=== PATIENT | male | born 1950 | race Caucasian/White ===

== ENCOUNTER 2020-08-28 13:20 | Outpatient (REF) | payer MEDICARE, MEDICAID, SELFPAY ==
[2020-08-28 17:30] LABS: Thyroid Stimulating Hormone 0.93 mIU/mL (0.32-4.0)
== END 2020-08-28 13:21 | disposition home or self-care (01) ==
LOC: HO.HMGCLDS 13:20
PROVIDERS: PCP Internal Medicine; Visit Provider Internal Medicine
DX: G62.9 Polyneuropathy, unspecified (principal)
CPT/HCPCS: 84443

== ENCOUNTER → 2020-10-01 08:20 | Outpatient (BNVA) | payer MEDICARE, MEDICAID, SELFPAY | PROVIDERS: PCP Internal Medicine; Visit Provider Anesthesiology | DX: G89.4 Chronic pain syndrome (principal); M47.816 Spondylosis without myelopathy or radiculopathy, lumbar region; M47.814 Spondylosis without myelopathy or radiculopathy, thoracic region | CPT/HCPCS: 99212 ==

== ENCOUNTER 2020-11-11 08:03 | Outpatient (REF) | payer MEDICARE, MEDICAID, SELFPAY ==
[2020-11-11 11:53] LABS: Alanine Aminotransferase 33 U/L (0-40); Albumin Level 4.6 g/dL (3.5-5.0); Alkaline Phosphatase 46 U/L (39-117); Anion Gap 13 (12-20); Aspartate Amino Transferase 24 U/L (5-37); Bilirubin Total 0.9 mg/dL (0.0-1.0); Blood Urea Nitrogen 23 mg/dL (9-16); Calcium 9.2 mg/dL (8.4-10.2); Carbon Dioxide 26 mmol/L (22-29); Chloride 101 mmol/L (96-108); Cholesterol 231 mg/dL; Estimated Glomerular Filt Rate 58; Glucose Fasting 105 mg/dL (60-99); HDL Cholesterol 42 mg/dL; LDL Cholesterol Calculated 126 mg/dl; Potassium 4.5 mmol/l (3.3-5.1); Sodium 135 mmol/L (135-145); Triglycerides 317 mg/dL
== END 2020-11-11 08:04 | disposition home or self-care (01) ==
LOC: HO.HMGCLDS 08:03
PROVIDERS: PCP Internal Medicine; Visit Provider Internal Medicine
DX: I10 Essential (primary) hypertension (principal); E78.5 Hyperlipidemia, unspecified
CPT/HCPCS: 80053; 80061

== ENCOUNTER → 2020-12-31 14:20 | Outpatient (BNVA) | payer MEDICARE, MEDICAID, SELFPAY | PROVIDERS: PCP Internal Medicine; Visit Provider Anesthesiology | DX: M47.816 Spondylosis without myelopathy or radiculopathy, lumbar region (principal); M47.814 Spondylosis without myelopathy or radiculopathy, thoracic region; G89.4 Chronic pain syndrome; M79.7 Fibromyalgia | CPT/HCPCS: 99212 ==

== ENCOUNTER → 2021-01-13 14:09 | Outpatient (BNVA) | payer MEDICARE, MEDICAID, SELFPAY | PROVIDERS: PCP Internal Medicine; Visit Provider Anesthesiology | DX: M47.816 Spondylosis without myelopathy or radiculopathy, lumbar region (principal); M47.814 Spondylosis without myelopathy or radiculopathy, thoracic region; M79.7 Fibromyalgia; G89.4 Chronic pain syndrome | CPT/HCPCS: Q3014 ==

== ENCOUNTER → 2021-01-29 15:43 | Outpatient (BNVA) | payer MEDICARE, MEDICAID, SELFPAY | PROVIDERS: PCP Internal Medicine; Visit Provider Anesthesiology | DX: M47.816 Spondylosis without myelopathy or radiculopathy, lumbar region (principal); M47.814 Spondylosis without myelopathy or radiculopathy, thoracic region; G89.4 Chronic pain syndrome; M79.7 Fibromyalgia; Z79.899 Other long term (current) drug therapy | CPT/HCPCS: Q3014 ==

== ENCOUNTER → 2021-02-05 14:43 | Outpatient (BNVA) | payer MEDICARE, MEDICAID, SELFPAY | PROVIDERS: PCP Internal Medicine; Visit Provider Anesthesiology | DX: M47.816 Spondylosis without myelopathy or radiculopathy, lumbar region (principal); M47.814 Spondylosis without myelopathy or radiculopathy, thoracic region; G89.4 Chronic pain syndrome; M79.7 Fibromyalgia; Z79.899 Other long term (current) drug therapy | CPT/HCPCS: 99212 ==

== ENCOUNTER 2021-03-25 07:12 | Outpatient (REF) | payer MEDICARE, MEDICAID, SELFPAY ==
[2021-03-25 11:42] LABS: Alanine Aminotransferase 28 U/L (0-40); Albumin Level 4.6 g/dL (3.5-5.0); Alkaline Phosphatase 49 U/L (39-117); Anion Gap 13 (12-20); Aspartate Amino Transferase 24 U/L (5-37); Bilirubin Total 1.1 mg/dL (0.0-1.0); Blood Urea Nitrogen 17 mg/dL (9-16); C Reactive Protein 0.07 mg/dL (< or = 0.50); Calcium 9.1 mg/dL (8.4-10.2); Carbon Dioxide 24 mmol/L (22-29); Chloride 105 mmol/L (96-108); Cholesterol 165 mg/dL; Estimated Glomerular Filt Rate > 60; Glucose Fasting 107 mg/dL (60-99); HDL Cholesterol 37 mg/dL; LDL Cholesterol Calculated 79 mg/dl; Potassium 4.3 mmol/L (3.3-5.1); Sodium 138 mmol/L (135-145); Total Protein 7.8 g/dL (6.5-8.0); Triglycerides 245 mg/dL
== END 2021-03-25 07:13 | disposition home or self-care (01) ==
LOC: HO.HMGCLDS 07:12
PROVIDERS: PCP Internal Medicine; Visit Provider Internal Medicine
DX: E78.5 Hyperlipidemia, unspecified (principal); I10 Essential (primary) hypertension; M25.50 Pain in unspecified joint; M79.7 Fibromyalgia
CPT/HCPCS: 36415; 80053; 80061; 82550; 86140

== ENCOUNTER → 2021-12-21 10:30 | Outpatient (BNVA) | payer MEDICARE, MEDICAID, SELFPAY | PROVIDERS: PCP Internal Medicine; Visit Provider Nurse Practitioner Family | DX: M79.7 Fibromyalgia (principal); M25.50 Pain in unspecified joint; M47.814 Spondylosis without myelopathy or radiculopathy, thoracic region; M47.816 Spondylosis without myelopathy or radiculopathy, lumbar region; G89.4 Chronic pain syndrome; G62.9 Polyneuropathy, unspecified | CPT/HCPCS: Q3014 ==

== ENCOUNTER → 2022-05-17 10:20 | Outpatient (BNVA) | payer MEDICARE, MEDICAID, SELFPAY | PROVIDERS: PCP Internal Medicine; Visit Provider Anesthesiology | DX: M79.7 Fibromyalgia (principal); M25.50 Pain in unspecified joint; G89.4 Chronic pain syndrome; M47.814 Spondylosis without myelopathy or radiculopathy, thoracic region; M47.816 Spondylosis without myelopathy or radiculopathy, lumbar region; G62.9 Polyneuropathy, unspecified | CPT/HCPCS: Q3014 ==

== ENCOUNTER 2022-06-29 06:59 | Outpatient (REF) | payer MEDICARE, MEDICAID, SELFPAY ==
[2022-06-29 11:34] LABS: Hematocrit 40.6 % (42.0-52.0); Hemoglobin 13.7 g/dl (14.0-18.0); Mean Corpuscular HGB Conc 33.7 g/dl (31.0-36.0); Mean Corpuscular Hemoglobin 30.4 pg (27.0-33.0); Mean Corpuscular Volume 90.2 fL (80.0-98.0); Mean Platelet Volume 10.3 fL (9.4-12.4); Platelet Count 166 X10*3/uL (160-400); Red Cell Distribution Width 12.8 % (11.0-16.0); White Blood Count 5.2 X10*3/uL (4.8-10.8)
[2022-06-29 11:40] LABS: Estimated Average Glucose 120 mg/dL; Hemoglobin A1c % 5.8 %
[2022-06-29 11:50] LABS: Alanine Aminotransferase 35 U/L (0-40); Albumin Level 4.3 g/dL (3.5-5.0); Alkaline Phosphatase 47 U/L (39-117); Anion Gap 17 (12-20); Aspartate Amino Transferase 24 U/L (5-37); Bilirubin Total 0.8 mg/dL (0.0-1.0); Blood Urea Nitrogen 19 mg/dL (9-16); Calcium 8.7 mg/dL (8.4-10.2); Carbon Dioxide 22 mmol/L (22-29); Chloride 104 mmol/L (96-108); Cholesterol 186 mg/dL; Estimated Glomerular Filt Rate > 60; Glucose Fasting 101 mg/dL (60-99); HDL Cholesterol 38 mg/dL; LDL Cholesterol Calculated 97 mg/dl; Potassium 4.6 mmol/L (3.3-5.1); Sodium 138 mmol/L (135-145); Total Protein 7.5 g/dL (6.5-8.0); Triglycerides 256 mg/dL
== END 2022-06-29 07:00 | disposition home or self-care (01) ==
LOC: HO.HMGCLDS 06:59
PROVIDERS: PCP Internal Medicine; Visit Provider Internal Medicine
DX: G62.9 Polyneuropathy, unspecified (principal); I10 Essential (primary) hypertension; E78.5 Hyperlipidemia, unspecified
CPT/HCPCS: 36415; 80053; 80061; 83036; 85027

== ENCOUNTER → 2022-11-24 10:05 | Outpatient (BNVA) | payer MEDICARE, MEDICAID, SELFPAY | PROVIDERS: PCP Internal Medicine; Visit Provider Anesthesiology | DX: M79.7 Fibromyalgia (principal); M25.50 Pain in unspecified joint; M47.814 Spondylosis without myelopathy or radiculopathy, thoracic region; M47.816 Spondylosis without myelopathy or radiculopathy, lumbar region; G62.9 Polyneuropathy, unspecified; G89.4 Chronic pain syndrome | CPT/HCPCS: Q3014 ==

== ENCOUNTER 2023-06-01 07:13 | Outpatient (REF) | payer MEDICARE, MEDICAID, SELFPAY ==
[2023-06-01 11:13] LABS: MANUAL DIFF FLAG NO
[2023-06-01 11:17] LABS: Appearance Urine Clear; Color Urine Yellow; Glucose Urine UA Negative (Negative); Leukocyte Esterase Urine Negative (Negative); Nitrite Urine Negative (Negative); PH 5.5 (5.0-9.0); Urine Blood Negative (Negative); Urine Ketones Negative (Negative); Urine Protein Negative (Neg-Trace)
[2023-06-01 11:26] LABS: Bacteria Urine None Seen (None Seen); Hyaline Casts Urine 0-2 /LPF (0-2); RBC Urine 0-2 /HPF (0-2); Squamous Epithelial Cell Urine 0-2 /HPF (0-2); WBC Urine 0-5 /HPF (0-5)
[2023-06-01 11:30] LABS: Basophils Percent Auto 0.7 % (0-2); Eosinophils Absolute Auto 0.1 X10*3/uL (0.0-0.4); Eosinophils Percent Auto 1.3 % (0-4); Hematocrit 39.7 % (42.0-52.0); Hemoglobin 13.5 g/dl (14.0-18.0); Imm Gran Abs Auto 0.01 X10*3/uL (0.00-0.03); Imm Gran Pct Auto 0.2 % (0.0-0.4); Lymphocytes Absolute Auto 2.5 X10*3/uL (1.2-4.9); Lymphocytes Percent Auto 45.4 % (20-40); Mean Corpuscular Hemoglobin 30.8 pg (27.0-33.0); Mean Corpuscular Volume 90.6 fL (80.0-98.0); Mean Platelet Volume 10.5 fL (9.4-12.4); Monocytes Absolute Auto 0.5 X10*3/uL (0.1-1.2); Monocytes Percent Auto 9.8 % (2-11); Neutrophils Absolute Auto 2.3 x10*3/uL (2.0-8.3); Neutrophils Percent Auto 42.6 % (45-73); Platelet Count 147 X10*3/uL (160-400); Red Blood Count 4.38 X10*6/uL (4.60-5.80); Red Cell Distribution Width 12.9 % (11.0-16.0); White Blood Count 5.4 X10*3/uL (4.8-10.8)
[2023-06-01 12:42] LABS: Alanine Aminotransferase 31 U/L (0-40); Albumin Level 4.3 g/dL (3.5-5.0); Alkaline Phosphatase 45 U/L (39-117); Anion Gap 15 (12-20); Aspartate Amino Transferase 22 U/L (5-37); Bilirubin Total 1.1 mg/dL (0.0-1.0); Blood Urea Nitrogen 22 mg/dL (9-16); Calcium 9.8 mg/dL (8.4-10.2); Carbon Dioxide 23 mmol/L (22-29); Chloride 104 mmol/L (96-108); Cholesterol 177 mg/dL; Estimated Glomerular Filt Rate > 60; Glucose Fasting 98 mg/dL (60-99); HDL Cholesterol 40 mg/dL; LDL Cholesterol Calculated 84 mg/dl; Potassium 4.2 mmol/L (3.3-5.1); Sodium 138 mmol/L (135-145); TSH reflex Free T4 2.05 uIU/mL (0.32-4.0); Total Protein 7.6 g/dL (6.5-8.0); Triglycerides 265 mg/dL
== END 2023-06-01 07:14 | disposition home or self-care (01) ==
LOC: HO.HMGCLDS 07:13
PROVIDERS: Absent Provider Nurse Practitioner Psychiatric/Mental Health; PCP Internal Medicine; Visit Provider Internal Medicine
DX: Z00.00 Encounter for general adult medical examination without abnormal findings (principal); E78.5 Hyperlipidemia, unspecified; I10 Essential (primary) hypertension; M25.50 Pain in unspecified joint; Z79.899 Other long term (current) drug therapy
CPT/HCPCS: 36415; 80053; 80061; 81001; 84443; 85025

== ENCOUNTER 2023-07-12 09:07 | Outpatient (AMB) | payer MEDICARE, MEDICAID, SELFPAY ==
[2023-07-12 09:15] VITALS: BP 122/74; PULSE 77; O2SAT 97; BMI 28.4
--- NOTE | 2023-07-12 09:15 | A.OFFPC_ITS ---
Vital Signs 07/12/23 09:15 Height 5 ft 9 in Weight 192 lb BMI 28.4 BP 122/74 Blood Pressure Location Lt brachial Position Sitting Pulse 77 Pulse Source Pulse Oximeter Pulse Oximetry (%) 97 Oxygen Delivery Method Room Air Intake Visit Reasons: PE Intake Note: Pt is here today for PE. Allergies atorvastatin [Lipitor] Allergy (Unknown, Verified 07/12/23 09:18) abd pain bupropion [From Wellbutrin] Allergy (Unknown, Verified 07/12/23 09:18) Nausea, Upset stomach buspirone [From BuSpar] Allergy (Unknown, Verified 07/12/23 09:18) anxiety, stomach duloxetine [Cymbalta] Allergy (Unknown, Verified 07/12/23 09:18) body burning gabapentin Allergy (Unknown, Verified 07/12/23 09:18) stomach upset paroxetine [Paxil] Allergy (Unknown, Verified 07/12/23 09:18) nausea and vomiting sertraline [Zoloft] Allergy (Unknown, Verified 07/12/23 09:18) anxiety venlafaxine [From Effexor] Allergy (Unknown, Verified 07/12/23 09:18) stomach upset Medication List - Last Reconciled 07/12/23 by Dilma Garcia MD aripiprazole mg PO clonazepam mg PO DAILY dutasteride 0.5 mg PO escitalopram oxalate mg PO ibuprofen mg PO lisinopril 15 mg PO DAILY mirtazapine 45 mg PO DAILY Neurontin (gabapentin) 300 mg PO TID 30 days NS rosuvastatin 10 mg PO DAILY Tobacco use date assessed: 07/12/23 Fall risk assessment: No Falls in past year Last assessed Fall Risk: 07/12/23 Dental Screening Dental Screen Date: 07/12/23 Did you have a dental visit in the last 12 months?: Yes Did you have a dental problem in the last 6 months where you did not have access to dental care?: No Was dental information given to patient?: Patient has dentist HPI PE HPI Details Pt presents for PE. PFSH Medical History (Updated 07/12/23 @ 09:59 by Dilma Garcia MD) Abdominal pain Annual physical exam Arthralgia Chronic pain syndrome Depression Fibromyalgia GERD (gastroesophageal reflux disease) HTN (hypertension) Hyperlipidemia Muscle spasm Neuropathy Spondylosis of lumbar spine Spondylosis of thoracic spine Surgical History (Updated 07/12/23 @ 09:47 by Dilma Garcia MD) No pertinent past surgical history Family History Father Unknown family medical history Mother HTN (hypertension) Brother Chronic leukemia Social History Housing: House Patient Tobacco Use Status: Never used Tobacco e-Cigarette/Vaping Use: Never Used Current occupational status: retired Cognitive needs: No Hearing needs: No Vision needs: No Questionnaire PHQ-9 Over the last 2 weeks, how often have you been bothered by any of the following problems? 1. Little interest or pleasure in doing things: not at all 2. Feeling down, depressed, or hopeless: not at all 3. Trouble falling or staying asleep, or sleeping too much: not at all 4. Feeling tired or having little energy: not at all 5. Poor appetite or overeating: not at all 6. Feeling bad about yourself - or that you are a failure or have let yourself or your family down: not at all 7. Trouble concentrating on things, such as reading the newspaper or watching television: not at all 8. Moving or speaking so slowly that other people could have noticed. Or the opposite - being so fidgety or restless that you have been moving around a lot more than usual: not at all 9. Thoughts that you would be better off or of hurting yourself in some way: not at all Total score: 0 Depression Screening Interpretation: Negative Source: Developed by Drs. Zeke Antony, Tala Lindsey, Bradly Rainey and colleagues, with an educational bunny from [employer]. Thrive Questionnaire Date Thrive assessed: 07/12/23 I am a: Patient What is your living situation today?: I have a steady place to live Within the past 12 months, did the food you bought not last and you didn't have the money to get more?: Never true Within the past 12 months, did you worry whether your food would run out before you got money to buy more?: Never true Do you have trouble paying for medicines?: No Do you have trouble getting transportation to medical appointments?: No Do you have trouble paying your heating and electricity bill?: No Do you have trouble taking care of your child, family member or friend?: No Do you have trouble with day-to-day activities such as bathing, preparing meals, shopping, managing finances, etc.?: No Are you currently unemployed and looking for a job?: No Are you interested in more education?: No Please select the resources that you would like help with: None Currently or been in a relationship where the following occur: no concerns reported AUDIT C Alcohol Use Questionnaire (AUDIT-C) 1. How often do you have a drink containing alcohol?: Never 3. How often do you have six or more drinks on one occasion?: Never Total Score: 0 GILSON-7 AMB Questionnaire GILSON-7 Date GILSON - 7 assessed: 07/12/23 Feeling nervous, anxious, or on edge: 0 = Not at all Not being able to stop or control worryin = Not at all Worrying too much about different things: 0 = Not at all Trouble relaxin = Not at all Being so restless that it is hard to sit still: 0 = Not at all Becoming easily annoyed or irritable: 0 = Not at all Feeling afraid as if something awful might happen: 0 = Not at all Total GILSON-7 score (0-4 normal; 5-9 mild; 10-14 moderate; 15-21 severe): 0 Source: Developed by Drs. Zeke Antony, Tala Lindsey, Bradly Rainey and colleagues, with an educational bunny from [employer]. Review of Systems Const All systems reviewed & are unremarkable except as noted in HPI and below Reports no additional complaints Eyes Reports no additional complaints ENT Reports no additional complaints Card Reports no additional complaints Resp Reports no additional complaints GI Reports no additional complaints Reports no additional complaints Physical exam (Primary Care) Vital Signs: Last Vital Signs Pulse 77 07/12/23 09:15 BP 122/74 07/12/23 09:15 Pulse Ox 97 07/12/23 09:15 Oxygen Delivery Method Room Air 07/12/23 09:15 BMI result Body Mass Index 28.4 Tobacco/Smoking Status: Tobacco use Status Tobacco use date assessed 07/12/23 07/12/23 09:22 Patient Tobacco Use Status Never used Tobacco 07/12/23 09:22 e-Cigarette/Vaping Use Never Used 07/12/23 09:16 PHQ-9: PHQ-9 Score PHQ-9: Total score 0 07/12/23 09:22 Depression Screening Interpretation: Negative Thrive Assessment: Date of Thrive Assessment Date Thrive assessed 07/12/23 07/12/23 09:22 Currently or been in a relationship where the following occur: no concerns reported Const General: no acute distress HENMT Head: Yes normal to inspection Ears: hearing grossly normal bilaterally Face and sinus: Yes normal facial exam Mouth: Normal oral and palatal mucosa present Throat: Yes posterior oropharynx normal Eyes General: appearance normal, both eyes and all related structures Neck Neck: Yes no lymphadenopathy and Yes supple Resp Effort & Inspection: normal respiratory effort Auscultation: clear to auscultation bilaterally Cardio Rhythm: regular rhythm Heart sounds: S1 normal heart sound present and S2 normal heart sound present GI Inspection: Yes normal to inspection Palpation (GI): Soft to palpation Percussion: Yes normal to percussion Auscultation: normal bowel sounds Assessment and Plan Assessment & Plan (1) Hx of colonoscopy: Comment: Dr. Kannan Vaughn Code(s): Z98.890 - Other specified postprocedural states (2) Annual physical exam: Code(s): Z00.00 - Encounter for general adult medical examination without abnormal findings Plan: Well-balanced and regular physical activity discussed with the patient (3) HTN (hypertension): Code(s): I10 - Essential (primary) hypertension Plan: Continue lisinopril (4) Hyperlipidemia: Code(s): E78.5 - Hyperlipidemia, unspecified Plan: Continue statin and add fish oil supplement for elevated triglycerides, (5) Depression: Comment: Established with psychiatrist and therapist Code(s): F32.9 - Major depressive disorder, single episode, unspecified Plan: Continue current medications and follow-up with Psychiatry Orders: Orders Comprehensive Colbert. Panel Fast 365 Days E78.5 - Hyperlipidemia, unspecified, G89.4 - Chronic pain syndrome, I10 - Essential (primary) hypertension, Z00.00 - Encounter for general adult medical examination without abnormal findings Complete Blood Count Auto Diff 365 Days E78.5 - Hyperlipidemia, unspecified, G89.4 - Chronic pain syndrome, I10 - Essential (primary) hypertension, Z00.00 - Encounter for general adult medical examination without abnormal findings Lipid Panel 365 Days E78.5 - Hyperlipidemia, unspecified, G89.4 - Chronic pain syndrome, I10 - Essential (primary) hypertension, Z00.00 - Encounter for general adult medical examination without abnormal findings Medications: Changed From lisinopril 10 mg PO BID 180 tabs 3RF To lisinopril 15 mg PO DAILY Coding Level of Care Code Est Pt Prev Care >65y(52475) Diagnoses Hx of colonoscopy Z98.890 Annual physical exam Z00.00 HTN (hypertension) I10 Hyperlipidemia E78.5 Depression F32.9
== END 2023-07-12 10:00 | disposition home or self-care (01) ==
PROVIDERS: PCP Internal Medicine; Visit Provider Internal Medicine
DX: Z00.00 Encounter for general adult medical examination without abnormal findings (principal); Z98.890 Other specified postprocedural states; I10 Essential (primary) hypertension; F32.9 Major depressive disorder, single episode, unspecified; E78.5 Hyperlipidemia, unspecified
CPT/HCPCS: 99397

== ENCOUNTER 2023-08-01 09:21 | Outpatient (AMB) | payer MEDICARE, MEDICAID, SELFPAY ==
--- NOTE | 2023-08-01 09:24 | A.OFFVIS_ITS ---
Intake Vital Signs 08/01/23 09:30 Height 5 ft 9 in Weight 194 lb 2 oz BMI 28.7 BP 140/88 H Blood Pressure Location Rt brachial Position Sitting Pulse 78 Pulse Source Pulse Oximeter Pulse Oximetry (%) 97 Oxygen Delivery Method Room Air Intake Visit Reasons: Follow Up/Back Pain Intake Note: Pt states pain is better in lower back-rating 2/10 with gabapentin Allergies atorvastatin [Lipitor] Allergy (Unknown, Verified 08/01/23 09:31) abd pain bupropion [From Wellbutrin] Allergy (Unknown, Verified 08/01/23 09:31) Nausea, Upset stomach buspirone [From BuSpar] Allergy (Unknown, Verified 08/01/23 09:31) anxiety, stomach duloxetine [Cymbalta] Allergy (Unknown, Verified 08/01/23 09:31) body burning gabapentin Allergy (Unknown, Verified 08/01/23 09:31) stomach upset paroxetine [Paxil] Allergy (Unknown, Verified 08/01/23 09:31) nausea and vomiting sertraline [Zoloft] Allergy (Unknown, Verified 08/01/23 09:31) anxiety venlafaxine [From Effexor] Allergy (Unknown, Verified 08/01/23 09:31) stomach upset Medication List - Last Reconciled 08/01/23 by Antoinette Trejo RN aripiprazole mg PO clonazepam mg PO DAILY dutasteride 0.5 mg PO escitalopram oxalate mg PO ibuprofen mg PO lisinopril 15 mg PO DAILY mirtazapine 45 mg PO DAILY Neurontin (gabapentin) 300 mg PO TID 30 days NS rosuvastatin 10 mg PO DAILY HPI HPI Comments History of Present Illness Details Gerald Taylor is very pleasant 69 years old [place] gentleman who is on the phone today to discuss the neurontin brand name medication as oppose to gabapentin . He reports that the brand name does not irritate his stomach. He requests me to perform pre authorization for his gabapentin/Neurontin. He reports that Neurontin worse for him better than gabapentin and insistent prescribing Neurontin instead of gabapentin. He denied depression increase of gabapentin however he is on 2 antidepressant medications escitalopram and aripiprazole. Warning was given to the patient about risk of dose increase or stop of the medication as it can induce suicide. Alternative medications are not available since gabapentin is working very well for him reducing his pain to 2/10 today. I will renew his medication and prescribe it for with 11 refills. Prior : ? History of evaluation by Dr. Sykes with [facility]..? He received extensive ev aluation in that organization.? No surgeries necessary.? As of thoracic spine pain his insurance would not cover thoracic medial branch blocks. ?Another pain generator is located in his lumbar spine. He reported that pain started in 1999. he reports the pain in the center of the lowest lumbar spine with radiation into the right lower extremity as well as numbness and numbing pain at the lower portion of the leg and the foot. He reports that this pain started in 2001 secondary to lifting heavy weights at his job. 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 He tried multiple interventions to help this pain including physical therapy chiropractic manipulation, acupuncture TENS unit, he tried full body extension exercises, he reports the only thing helps minimally in the past was body extension but other interventions were not effective. He received epidural steroid injections with [id number] they were designed to treat L4- 5 radiculopathy. He reports that injection helped minimally for few days and then the pain would come back. He had an MRI done for his lumbar spine on MRI he has T12-L1 normal as well as L1-L2 and L2-L3. L3-L4 minimal disc bulge without spinal canal stenosis mild facet arthropathy mild left and no significant right foraminal stenosis L4-5 there is mild diffuse disc bulge with small left paracentral annual tear flattening the ventral thecal sac and significantly narrowing the bilateral subarticular zones with the bilateral L5 traversing nerve roots contacting the bulging discs within the subarticular zone there is facet joint arthropathy there is posterior endplate spurs and facet joint arthropathy resulting in moderate left and right foraminal stenosis stable. L5-S1 facet arthropathy and ligamentum flavum thickening no disc bulging no spinal canal or foraminal stenos [facility] Medical History Abdominal pain Annual physical exam Arthralgia Chronic pain syndrome Depression Fibromyalgia GERD (gastroesophageal reflux disease) HTN (hypertension) Hyperlipidemia Muscle spasm Neuropathy Spondylosis of lumbar spine Spondylosis of thoracic spine Surgical History No pertinent past surgical history Family History Father Unknown family medical history Mother HTN (hypertension) Brother Chronic leukemia Social History Housing: House Patient Tobacco Use Status: Never used Tobacco e-Cigarette/Vaping Use: Never Used Current occupational status: retired Cognitive needs: No Hearing needs: No Vision needs: No Review of Systems Const All systems reviewed & are unremarkable except as noted in HPI and below ENT Reports Normal hearing present Neuro Reports Normal hearing present, Denies confusion and Denies Sensory deficit (Neuro) Psych Denies confusion Physical Exam Const General: No confusion Orientation/consciousness: No confusion Eyes Pupils: Equal, round and reactive pupils present EOM: EOMs intact bilaterally Resp Effort & Inspection: normal respiratory effort, able to speak in complete sentences, normal respiratory pattern, no audible wheezes and no cough Cardio Jugular venous distension: no JVD GI Inspection: Yes normal to inspection Back/Spine/Pelvis Other: Palpation of the thoracic spine at the presume oval T7 area reveals severe pain on palpation in paraspinal and spinal regions. Palpation of lumbar spine in presume mobile L5 area also tender on palpation. More on spinal regions than the known paraspinal regions. Straight leg rising is a positive for pain increase on the right as well as pain increase on the left straight leg rising on the left causes pain on the right. The pain is of shooting nature and radiates all the way down to the ball of his foot. He also feels numbness during the pain episode. This presents classical radiculopathy.. Neuro General: No confusion Cranial nerves: Yes Equal, round and reactive pupils present and Yes Normal hearing present Sensory Exam: No Sensory deficit (Neuro) Psych Appearance: grossly normal Mental Status: mental status grossly normal Speech and movement: Normal speech and movement present Affect: normal affect Attitude: cooperative Thought process: Normal thought process present Thought content: Normal thought content present Insight: Good insight present (Psych) Judgement: Good judgement present (Psych) Assessment & Plan Assessment & Plan (1) Fibromyalgia: Code(s): M79.7 - Fibromyalgia (2) Arthralgia: Code(s): M25.50 - Pain in unspecified joint (3) Chronic pain syndrome: Code(s): G89.4 - Chronic pain syndrome (4) Spondylosis of thoracic spine: Code(s): M47.814 - Spondylosis without myelopathy or radiculopathy, thoracic region (5) Spondylosis of lumbar spine: Code(s): M47.816 - Spondylosis without myelopathy or radiculopathy, lumbar region (6) Neuropathy: Code(s): G62.9 - Polyneuropathy, unspecified Plan Patient has been well tolerating neurontin at 300 mg TID for his lower back pain, neuropathy and fibrolmyalgia management. Risk of continuous dose of gabapentin/Neurontin risk of does increase of Neurontin as well as therapy emanation of Neurontin were explained to the patient. Suicide ideations were explained to the patient. He is on 2 antidepressant medications. He reports no increase of depression. He reports no side effects with brand name Neurontin as opposed to gabapentin. I will prescribe him as before Neurontin medication. Medications: Refilled Neurontin (gabapentin) 300 mg PO TID 90 caps 11RF 30 days NS G62.9 - Polyneuropathy, unspecified, M47.814 - Spondylosis without myelopathy or radiculopathy, thoracic region, M47.816 - Spondylosis without myelopathy or radiculopathy, lumbar region, M79.7 - Fibromyalgia Coding Level of Care Code Est Pt Level 4 (47590) Diagnoses Fibromyalgia M79.7 Arthralgia M25.50 Chronic pain syndrome G89.4 Spondylosis of thoracic spine M47.814 Spondylosis of lumbar spine M47.816 Neuropathy G62.9
[2023-08-01 09:30] VITALS: BP 140/88; PULSE 78; O2SAT 97; BMI 28.7
== END 2023-08-01 10:05 | disposition home or self-care (01) ==
PROVIDERS: PCP Internal Medicine; Visit Provider Anesthesiology
DX: M79.7 Fibromyalgia (principal); M25.50 Pain in unspecified joint; G89.4 Chronic pain syndrome; M47.814 Spondylosis without myelopathy or radiculopathy, thoracic region; M47.816 Spondylosis without myelopathy or radiculopathy, lumbar region; G62.9 Polyneuropathy, unspecified
CPT/HCPCS: 99214

== ENCOUNTER → 2023-08-01 09:21 | Outpatient (BNVA) | payer MEDICARE, MEDICAID, SELFPAY | PROVIDERS: PCP Internal Medicine; Visit Provider Anesthesiology | DX: G89.4 Chronic pain syndrome (principal); M79.7 Fibromyalgia; M25.50 Pain in unspecified joint; M47.814 Spondylosis without myelopathy or radiculopathy, thoracic region; M47.816 Spondylosis without myelopathy or radiculopathy, lumbar region; G62.9 Polyneuropathy, unspecified | CPT/HCPCS: 99212 ==

== ENCOUNTER 2024-06-04 11:17 | Outpatient (REF) | payer MEDICARE, MEDICAID, SELFPAY ==
[2024-06-04 12:27] VITALS: BMI 28.3
[2024-06-04 12:28] VITALS: BP 143/92; PULSE 76; RESP 16; TEMP 36.2; O2SAT 97
== END 2024-06-04 11:18 | disposition home or self-care (01) ==
LOC: HO.MS 11:17
PROVIDERS: PCP Internal Medicine; Visit Provider Ophthalmology
DX: L57.0 Actinic keratosis (principal)
CPT/HCPCS: 88304; 88305

== ENCOUNTER 2024-06-18 09:16 | Outpatient (AMB) | payer MEDICARE, MEDICAID, SELFPAY ==
[2024-06-18 09:17] VITALS: BP 128/78; BMI 29.2
--- NOTE | 2024-06-18 09:17 | A.OFFVIS_ITS ---
Vital Signs 06/18/24 09:17 Height 5 ft 8 in Weight 192 lb BMI 29.2 BP 128/78 Blood Pressure Location Rt brachial Position Sitting Intake Visit Reasons: Back pain Allergies atorvastatin [Lipitor] Allergy (Unknown, Verified 08/01/23 09:31) abd pain bupropion [From Wellbutrin] Allergy (Unknown, Verified 08/01/23 09:31) Nausea, Upset stomach buspirone [From BuSpar] Allergy (Unknown, Verified 08/01/23 09:31) anxiety, stomach duloxetine [Cymbalta] Allergy (Unknown, Verified 08/01/23 09:31) body burning gabapentin Allergy (Unknown, Verified 08/01/23 09:31) stomach upset paroxetine [Paxil] Allergy (Unknown, Verified 08/01/23 09:31) nausea and vomiting sertraline [Zoloft] Allergy (Unknown, Verified 08/01/23 09:31) anxiety venlafaxine [From Effexor] Allergy (Unknown, Verified 08/01/23 09:31) stomach upset HPI Comments Details: Gerald Taylor is very pleasant 69 years old male who came today as a follow- up in my office to request a renewal of his gabapentin. He is accepting only Neurontin brand name form of this medication. He is allergic to generic gabapentin. I will prescribe him his medication as he requests. He reports pain in the lumbar spine with radiation into the right lower extremity all the way down to his heel. He has SLR is positive, most likely has degenerative disc disease and arthropathy. We decided that I will send him for MRI of the lumbar spine. The old description of the MRI is as below however it has been at least 6 years since he received that MRI and maybe the condition progress to the worse. Prior : ? History of evaluation by Dr. Sykes with [facility].? No surgeries necessary.? As of thoracic spine pain his insurance would not cover thoracic medial branch blocks. ?Another pain generator is located in his lumbar spine. He reported that pain started in 1999. he reports the pain in the center of the lowest lumbar spine with radiation into the right lower extremity as well as numbness and numbing pain at the lower portion of the leg and the foot. He reports that this pain s tarted in 2001 secondary to lifting heavy weights at his job. 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 He tried multiple interventions to help this pain including physical therapy chiropractic manipulation, acupuncture TENS unit, he tried full body extension exercises, he reports the only thing helps minimally in the past was body extension but other interventions were not effective. He received epidural steroid injections with [facility] they were designed to treat L4- 5 radiculopathy. He reports that injection helped minimally for few days and then the pain would come back. He had an MRI done for his lumbar spine on MRI he has T12-L1 normal as well as L1-L2 and L2-L3. L3-L4 minimal disc bulge without spinal canal stenosis mild facet arthropathy mild left and no significant right foraminal stenosis L4-5 there is mild diffuse disc bulge with small left paracentral annual tear flattening the ventral thecal sac and significantly narrowing the bilateral subarticular zones with the bilateral L5 traversing nerve roots contacting the bulging discs within the subarticular zone there is facet joint arthropathy there is posterior endplate spurs and facet joint arthropathy resulting in moderate left and right foraminal stenosis stable. 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 Surgical History No pertinent past surgical history Family History Father Unknown family medical history Mother HTN (hypertension) Brother Chronic leukemia Social History Housing: House Patient Tobacco Use Status: Never used Tobacco e-Cigarette/Vaping Use: Never Used Current occupational status: retired Cognitive needs: No Hearing needs: No Vision needs: No Review of Systems Const All systems reviewed & are unremarkable except as noted in HPI and below ENT Reports Normal hearing present Neuro Reports Normal hearing present, Denies confusion and Denies Sensory deficit (Neuro) Psych Denies confusion Physical Exam Vital Signs: Last Vital Signs BP 128/78 07/29/24 09:17 BMI result Body Mass Index 29.2 Const General: No confusion Orientation/consciousness: No confusion Eyes Pupils: Equal, round and reactive pupils present EOM: EOMs intact bilaterally Resp Effort & Inspection: normal respiratory effort, able to speak in complete sentences, normal respiratory pattern, no audible wheezes and no cough Cardio Jugular venous distension: no JVD GI Inspection: Yes normal to inspection Back/Spine/Pelvis Other: Palpation of the thoracic spine at the presume oval T7 area reveals severe pain on palpation in paraspinal and spinal regions. Palpation of lumbar spine in presume mobile L5 area also tender on palpation. More on spinal regions than the known paraspinal regions. Straight leg rising is a positive for pain increase on the right as well as pain increase on the left straight leg rising on the left causes pain on the right. The pain is of shooting nature and radiates all the way down to the ball of his foot. He also feels numbness during the pain episode. This presents classical radiculopathy.. Neuro General: No confusion Cranial nerves: Yes Equal, round and reactive pupils present and Yes Normal hearing present Sensory Exam: No Sensory deficit (Neuro) Psych Appearance: grossly normal Mental Status: mental status grossly normal Speech and movement: Normal speech and movement present Affect: normal affect Attitude: cooperative Thought process: Normal thought process present Thought content: Normal thought content present Insight: Good insight present (Psych) Judgement: Good judgement present (Psych) Assessment & Plan Assessment & Plan (1) Fibromyalgia: Code(s): M79.7 - Fibromyalgia Category: Medical (2) Arthralgia: Code(s): M25.50 - Pain in unspecified joint Category: Medical (3) Chronic pain syndrome: Code(s): G89.4 - Chronic pain syndrome Category: Medical (4) Spondylosis of thoracic spine: Code(s): M47.814 - Spondylosis without myelopathy or radiculopathy, thoracic region Category: Medical (5) Spondylosis of lumbar spine: Code(s): M47.816 - Spondylosis without myelopathy or radiculopathy, lumbar region Category: Medical (6) Neuropathy: Code(s): G62.9 - Polyneuropathy, unspecified Category: Medical Plan Patient has been well tolerating neurontin at 300 mg TID for his lower back pain, neuropathy and fibrolmyalgia management. He is on 2 antidepressant medications. He reports that aripiprazole helped his pain minimally. I will renew his Neurontin again. He accepts only brand name medication and he can not take gabapentin generic he is allergic to some unknown components to gabapentin. I also decided to send him for the MRI of the lumbar spine. It has been 6 years since he had last MRI. The description of the MRI is as above however the advancement of the spondylosis and disc degeneration can not be excluded. Orders: Orders MR lumbar spine wo con Today M47.816 - Spondylosis without myelopathy or radiculopathy, lumbar region Medications: Refilled Neurontin (gabapentin) 300 mg PO TID 90 caps 11RF 30 days NS G62.9 - Polyneuropathy, unspecified, M47.814 - Spondylosis without myelopathy or radiculopathy, thoracic region, M47.816 - Spondylosis without myelopathy or radiculopathy, lumbar region, M79.7 - Fibromyalgia Patient Instructions: I here by testify that I spent 34 minutes in conversation with this patient as well as planning his care and organizing this note. Coding Level of Care Code Est Pt Level 4 (94059) Diagnoses Fibromyalgia M79.7 Arthralgia M25.50 Chronic pain syndrome G89.4 Spondylosis of thoracic spine M47.814 Spondylosis of lumbar spine M47.816 Neuropathy G62.9
== END 2024-06-18 09:40 | disposition home or self-care (01) ==
PROVIDERS: PCP Internal Medicine; Visit Provider Anesthesiology
DX: M79.7 Fibromyalgia (principal); M25.50 Pain in unspecified joint; G89.4 Chronic pain syndrome; M47.814 Spondylosis without myelopathy or radiculopathy, thoracic region; M47.816 Spondylosis without myelopathy or radiculopathy, lumbar region; G62.9 Polyneuropathy, unspecified
CPT/HCPCS: 99214

== ENCOUNTER → 2024-06-18 09:16 | Outpatient (BNVA) | payer MEDICARE, MEDICAID, SELFPAY | PROVIDERS: PCP Internal Medicine; Visit Provider Anesthesiology | DX: M79.7 Fibromyalgia (principal); M25.50 Pain in unspecified joint; M47.814 Spondylosis without myelopathy or radiculopathy, thoracic region; M47.816 Spondylosis without myelopathy or radiculopathy, lumbar region; G62.9 Polyneuropathy, unspecified; G89.4 Chronic pain syndrome | CPT/HCPCS: 99212 ==

== ENCOUNTER 2024-07-13 06:50 | Outpatient (REF) | payer MEDICARE, MEDICAID, SELFPAY ==
[2024-07-13 10:07] LABS: MANUAL DIFF FLAG NO
[2024-07-13 10:21] LABS: Basophils Percent Auto 0.6 % (0-2); Hematocrit 38.9 % (42.0-52.0); Hemoglobin 13.5 g/dl (14.0-18.0); Imm Gran Abs Auto 0.01 X10*3/uL (0.00-0.03); Imm Gran Pct Auto 0.2 % (0.0-0.4); Lymphocytes Absolute Auto 2.2 X10*3/uL (1.2-4.9); Lymphocytes Percent Auto 46.6 % (20-40); Mean Corpuscular HGB Conc 34.7 g/dl (31.0-36.0); Mean Corpuscular Hemoglobin 31.3 pg (27.0-33.0); Monocytes Absolute Auto 0.3 X10*3/uL (0.1-1.2); Monocytes Percent Auto 6.8 % (2-11); Neutrophils Absolute Auto 2.2 x10*3/uL (2.0-8.3); Neutrophils Percent Auto 45.8 % (45-73); Platelet Count 143 X10*3/uL (160-400); Red Blood Count 4.32 X10*6/uL (4.60-5.80); Red Cell Distribution Width 12.7 % (11.0-16.0); White Blood Count 4.7 X10*3/uL (4.8-10.8)
[2024-07-13 10:57] LABS: Alanine Aminotransferase 34 U/L (0-40); Albumin Level 4.4 g/dL (3.5-5.0); Alkaline Phosphatase 40 U/L (39-117); Anion Gap 13 (12-20); Aspartate Amino Transferase 26 U/L (5-37); Bilirubin Total 1.2 mg/dL (0.0-1.0); Blood Urea Nitrogen 16 mg/dL (9-16); Calcium 9.2 mg/dL (8.4-10.2); Carbon Dioxide 23 mmol/L (22-29); Chloride 105 mmol/L (96-108); Cholesterol 157 mg/dL (<200); Estimated Glomerular Filt Rate > 60; Glucose Fasting 105 mg/dL (60-99); HDL Cholesterol 40 mg/dL (>40); LDL Cholesterol Calculated 69 mg/dL (<100); Sodium 137 mmol/L (135-145); Total Protein 7.8 g/dL (6.5-8.0); Triglycerides 242 mg/dL (<150)
== END 2024-07-13 06:51 | disposition home or self-care (01) ==
LOC: HO.HMGCLDS 06:50
PROVIDERS: PCP Internal Medicine; Visit Provider Internal Medicine
DX: Z00.00 Encounter for general adult medical examination without abnormal findings (principal); I10 Essential (primary) hypertension; E78.5 Hyperlipidemia, unspecified; G89.4 Chronic pain syndrome
CPT/HCPCS: 36415; 80053; 80061; 85025

== ENCOUNTER 2024-07-14 14:02 | Outpatient (REF) | payer MEDICARE, MEDICAID, SELFPAY ==
--- NOTE | ~2024-07-14 | MR_ITS ---
EXAMINATION: MR LUMBAR SPINE WITHOUT CONTRAST CLINICAL INFORMATION: 73-year-old with spondylosis, without myelopathy or radiculopathy, lumbar region. Self reported increasing low back pain of 2 months duration and bilateral leg pain. COMPARISON: None available. TECHNIQUE: MRI of the lumbar spine was obtained using routine sequences without contrast. FINDINGS: Coronal Alignment: Slight lower lumbar dextrocurvature minimally convex to the right at L4-L5 and partially imaged thoracic levocurvature suspected. Suggest correlation with plain x-rays. Sagittal Alignment: Normal. Lumbosacral Junction: Normal. There are 5 zah-ols-xicokiz lumbar-type vertebral bodies. Vertebral Bodies: Vertebral body heights are well-maintained. No acute or nonhealed fractures. Disc Spaces and Endplates: Hkxi-xw-guenkkca intervertebral disc space height loss at T11-T12 with intradiscal loss of T2-weighted signal, consistent with disc degenerative change, with a tiny Schmorl's node along the superior endplate of T12 and minor spondylosis at this level. Lumbar intervertebral disc space heights demonstrate mild volume loss at L4-L5 with mild loss of intradiscal T2 weighted signal at the L3-L4 and L4-L5 levels. There is minor spondylosis at these two levels. Endplates appear grossly intact throughout the lumbar spine. Spinal Canal: No abnormal developmental findings. Bone Marrow: Diffusely heterogeneous bone marrow signal intensity is seen throughout the osseous structures on T1 and T2-weighted imaging, which is a nonspecific finding, but is possibly physiologic. No focally suspicious marrow-replacing process or bone marrow edema is identified. There is minor type I and type II marrow signal change along the endplates at T11-T12. Conus Medullaris: Terminates at L1-L2. Morphology and signal is normal. Intradural Nerve Roots: Within normal limits. L5-S1: Minor annular bulging noted with no significant thecal sac encroachment. No significant facet joint arthropathy or canal stenosis. Right posterolateral disc osteophyte complex noted. No significant neural foraminal stenosis. L4-L5: Concentric disc bulging is noted with flattening of the ventral dural sac, with left posterolateral disc osteophyte complex. There is clfz-zm-szffmlne bilateral facet joint arthrosis with ligamentum flavum thickening and a slightly prominent dorsal fat pad. No significant central canal stenosis. There is crowding of the subarticular zones with mild encroachment on the traversing left L5 nerve root. There is moderate bilateral neural foraminal stenosis with disc bulging abutting the extraforaminal L4 nerve roots bilaterally. L3-L4: There is concentric disc bulging with mild flattening of the dural sac. There is mild right and fjbm-me-ugmjqaof left-sided facet joint arthrosis. Ligamentum flavum thickening is noted asymmetric to the left, without central canal stenosis. There is udvp-uq-gpazpnzs narrowing of the left subarticular zone, minimally encroaching on the left L4 nerve root. There is no significant neural foraminal stenosis. L2-L3: There is disc bulging asymmetric to the left, with a small posterolateral annular fissure on the left. Slight indentation of the ventral thecal sac is noted asymmetric to the left. Mild facet joint arthrosis is noted bilaterally. No significant canal or neural foraminal stenosis. L1-L2: Shallow right paramedian disc protrusion. No facet joint arthrosis, canal or neural foraminal stenosis. Broad-based central right paramedian disc herniation at T11-T12 with encroachment on the ventral thecal sac, asymmetric to the right without cord impingement or significant canal stenosis. Paravertebral and Included Extraspinal Soft Tissues: The visualized paravertebral soft tissues and included retroperitoneal structures are unremarkable within the limitations of the exam. MR/MR lumbar spine wo con IMPRESSION: 1. Mild S-shaped thoracolumbar scoliotic curvature. Suggest correlation with plain x-rays. 2. Discogenic degenerative changes primarily at T11-T12 and L4-L5, as discussed above, with multilevel disc bulging and disc osteophyte complexes, with multilevel bilateral facet joint arthrosis. No significant central canal stenosis. 3. Subarticular zone narrowing on the left at L4-L5 and on the left at L3-L4 with mild encroachment on the traversing left L5 and left L4 nerve roots respectively. 4. Moderate bilateral neural foraminal stenosis at L4-L5, with disc bulging abutting the extraforaminal L4 nerve roots bilaterally. 5. Central to right paramedian disc herniation at T11-T12 without cord impingement. Electronically signed by: Vicente Contreras MD 08/01/2024 05:10 PM EDT
== END 2024-07-14 14:03 | disposition home or self-care (01) ==
LOC: HO.MRI 14:02
PROVIDERS: PCP Internal Medicine; Visit Provider Anesthesiology
DX: M47.816 Spondylosis without myelopathy or radiculopathy, lumbar region (principal)
CPT/HCPCS: 72148

== ENCOUNTER 2024-07-19 07:31 | Outpatient (AMB) | payer MEDICARE, MEDICAID, SELFPAY ==
[2024-07-19 07:44] VITALS: BP 136/88; PULSE 86; O2SAT 96; BMI 29.0
--- NOTE | 2024-07-19 07:44 | A.OFFPC_ITS ---
Vital Signs 07/19/24 07:44 Height 5 ft 8 in Weight 191 lb BMI 29.0 BP 136/88 Blood Pressure Location Lt brachial Position Sitting Pulse 86 Pulse Source Pulse Oximeter Pulse Oximetry (%) 96 Oxygen Delivery Method Room Air Intake Visit Reasons: Annual PE Intake Note: Pt is here today for his PE Allergies atorvastatin [Lipitor] Allergy (Unknown, Verified 07/19/24 07:45) abd pain bupropion [From Wellbutrin] Allergy (Unknown, Verified 07/19/24 07:45) Nausea, Upset stomach buspirone [From BuSpar] Allergy (Unknown, Verified 07/19/24 07:45) anxiety, stomach duloxetine [Cymbalta] Allergy (Unknown, Verified 07/19/24 07:45) body burning gabapentin Allergy (Unknown, Verified 07/19/24 07:45) stomach upset paroxetine [Paxil] Allergy (Unknown, Verified 07/19/24 07:45) nausea and vomiting sertraline [Zoloft] Allergy (Unknown, Verified 07/19/24 07:45) anxiety venlafaxine [From Effexor] Allergy (Unknown, Verified 07/19/24 07:45) stomach upset Medication List - Last Reconciled 07/19/24 by Dilma Garcia MD aripiprazole 2 tablbets po qd clonazepam mg PO DAILY dutasteride (Avodart) 0.5 mg PO DAILY escitalopram oxalate 15 mg PO lisinopril 15 mg (1.5 x 10 mg) PO DAILY mirtazapine 45 mg PO DAILY Neurontin (gabapentin) 300 mg PO TID 30 days NS rosuvastatin 10 mg PO DAILY Tobacco use date assessed: 07/19/24 Fall risk assessment: No Falls in past year Last assessed Fall Risk: 07/19/24 Dental Screening Dental Screen Date: 07/19/24 Did you have a dental visit in the last 12 months?: Yes Did you have a dental problem in the last 6 months where you did not have access to dental care?: No Was dental information given to patient?: Patient has dentist HPI Annual PE HPI Details Patient presents for a physical. 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 1. Little interest or pleasure in doing things: not at all 2. Feeling down, depressed, or hopeless: not at all 3. Trouble falling or staying asleep, or sleeping too much: not at all 4. Feeling tired or having little energy: not at all 5. Poor appetite or overeating: not at all 6. Feeling bad about yourself - or that you are a failure or have let yourself or your family down: not at all 7. Trouble concentrating on things, such as reading the newspaper or watching television: not at all 8. Moving or speaking so slowly that other people could have noticed. Or the opposite - being so fidgety or restless that you have been moving around a lot more than usual: not at all 9. Thoughts that you would be better off or of hurting yourself in some way: not at all Total score: 0 Depression Screening Interpretation: Negative Depression Screening Done: Yes 19304 - PHQ-9 Billing: Yes Source: Developed by Drs. Zeke Antony, Tala Lindsey, Bradly Rainey and colleagues, with an educational bunny from [employer]. Thrive Questionnaire Date Thrive assessed: 07/19/24 I am a: Patient What is your living situation today?: I have a steady place to live Within the past 12 months, did the food you bought not last and you didn't have the money to get more?: Never true Within the past 12 months, did you worry whether your food would run out before you got money to buy more?: Never true Do you have trouble paying for medicines?: No Do you have trouble getting transportation to medical appointments?: No Do you have trouble paying your heating and electricity bill?: No Do you have trouble taking care of your child, family member or friend?: No Do you have trouble with day-to-day activities such as bathing, preparing meals, shopping, managing finances, etc.?: No Are you currently unemployed and looking for a job?: No Are you interested in more education?: No THRIVE Score: 0 AUDIT C Alcohol Use Questionnaire (AUDIT-C) 1. How often do you have a drink containing alcohol?: Never Total Score: 0 GILSON-7 AMB Questionnaire GILSON-7 Date GILSON - 7 assessed: 07/19/24 Feeling nervous, anxious, or on edge: 1 = Several days Not being able to stop or control worryin = Several days Worrying too much about different things: 1 = Several days Trouble relaxin = Several days Being so restless that it is hard to sit still: 1 = Several days Becoming easily annoyed or irritable: 1 = Several days Feeling afraid as if something awful might happen: 1 = Several days Total GILSON-7 score (0-4 normal; 5-9 mild; 10-14 moderate; 15-21 severe): 7 Source: Developed by Drs. Zeke Antony, Tala Lindsey, Bradly Rainey and colleagues, with an educational bunny from [employer]. Review of Systems Const All systems reviewed & are unremarkable except as noted in HPI and below Reports no additional complaints Eyes Reports no additional complaints ENT Reports no additional complaints Card Reports no additional complaints GI Reports no additional complaints Reports no additional complaints Physical exam (Primary Care) Vital Signs: Last Vital Signs Pulse 86 07/19/24 07:44 BP 136/90 H 07/19/24 07:44 Pulse Ox 96 07/19/24 07:44 Oxygen Delivery Method Room Air 07/19/24 07:44 BMI result Body Mass Index 29.0 Tobacco/Smoking Status: Tobacco use Status Tobacco use date assessed 07/19/24 07/19/24 07:52 Patient Tobacco Use Status Never used Tobacco 07/19/24 07:52 e-Cigarette/Vaping Use Never Used 07/19/24 07:52 PHQ-9: PHQ-9 Score PHQ-9: Total score 0 07/19/24 07:52 Depression Screening Interpretation: Negative Thrive Assessment: Date of Thrive Assessment Date Thrive assessed 07/19/24 07/19/24 07:52 Const General: no acute distress HENMT Head: Yes normal to inspection Ears: hearing grossly normal bilaterally General nose exam: Normal external nose present Throat: Yes posterior oropharynx normal Eyes General: appearance normal, both eyes and all related structures Neck Neck: Yes supple Resp Effort & Inspection: normal respiratory effort Auscultation: clear to auscultation bilaterally Cardio Rhythm: regular rhythm Heart sounds: S1 normal heart sound present and S2 normal heart sound present GI Inspection: Yes normal to inspection Palpation (GI): Soft to palpation Percussion: Yes normal to percussion Auscultation: normal bowel sounds Assessment and Plan Assessment & Plan (1) Anemia: Code(s): D64.9 - Anemia, unspecified Plan: For borderline pancytopenia Check iron studies and B12 level (2) Spondylosis of lumbar spine: Comment: Follow-up with [place] [facility] Code(s): M47.816 - Spondylosis without myelopathy or radiculopathy, lumbar region Plan: Follow-up with pain management (3) HTN (hypertension): Code(s): I10 - Essential (primary) hypertension Plan: Increase lisinopril to 20 mg follow-up in 6 weeks (4) Hyperlipidemia: Code(s): E78.5 - Hyperlipidemia, unspecified Plan: Continue statin (5) Depression: Comment: Established with psychiatrist and therapist Code(s): F32.9 - Major depressive disorder, single episode, unspecified Plan: Continue current medications (6) Annual physical exam: Code(s): Z00.00 - Encounter for general adult medical examination without abnormal findings Plan: Well-balanced diet regular physical activity discussed with the patient colonoscopy was discussed but patient declined Orders: Orders IRON PROFILE Today D64.9 - Anemia, unspecified Vitamin B12 and Folate Today D64.9 - Anemia, unspecified Vitamin B1 Today D64.9 - Anemia, unspecified Referrals Massage Therapy Referral M47.816 - Spondylosis without myelopathy or radiculopathy, lumbar region Medications: Changed From lisinopril 15 mg (1.5 x 10 mg) PO DAILY 135 tabs 3RF To lisinopril 10 mg PO BID 180 tabs 3RF Coding Level of Care Code Est Pt Prev Care >65y(01640) Diagnoses Anemia D64.9 Spondylosis of lumbar spine M47.816 HTN (hypertension) I10 Hyperlipidemia E78.5 Depression F32.9 Annual physical exam Z00.00
== END 2024-07-19 08:19 | disposition home or self-care (01) ==
PROVIDERS: PCP Internal Medicine; Visit Provider Internal Medicine
DX: Z00.00 Encounter for general adult medical examination without abnormal findings (principal); D64.9 Anemia, unspecified; M47.816 Spondylosis without myelopathy or radiculopathy, lumbar region; I10 Essential (primary) hypertension; E78.5 Hyperlipidemia, unspecified; F32.9 Major depressive disorder, single episode, unspecified
CPT/HCPCS: 99397

== ENCOUNTER 2024-07-19 08:25 | Outpatient (REF) | payer MEDICARE, MEDICAID, SELFPAY ==
[2024-07-19 10:48] LABS: Iron 92 mcg/dL (45-160); Percent Iron Saturation 34 % (15-50); Total Iron Binding Capacity 274 mcg/dL (228-428); Unsaturated Iron Binding 182 ug/dL
[2024-07-19 11:19] LABS: Folate 12.8 ng/mL (> or = 4.0); Vitamin B12 317 pg/mL (200-900)
[2024-07-24 16:32] LABS: Vitamin B1 16 nmol/L (8-30)
== END 2024-07-19 08:26 | disposition home or self-care (01) ==
LOC: HO.HMGCLDS 08:25
PROVIDERS: PCP Internal Medicine; Visit Provider Internal Medicine
DX: D64.9 Anemia, unspecified (principal)
CPT/HCPCS: 36415; 82607; 82746; 83540; 84425

== ENCOUNTER 2024-08-06 12:49 | Outpatient (AMB) | payer MEDICARE, MEDICAID, SELFPAY ==
--- NOTE | 2024-08-06 12:53 | A.OFFVIS_ITS ---
Vital Signs 08/06/24 13:08 Height 5 ft 8 in Weight 192 lb 4 oz BMI 29.2 BP 119/75 Blood Pressure Location Lt brachial Position Sitting Respiration 16 Pulse 99 Pulse Source Pulse Oximeter Pulse Oximetry (%) 97 Oxygen Delivery Method Room Air Intake Visit Reasons: Follow Up/Discuss MRI Results Intake Note: Patient comes in to discuss MRI results. Reports pain 6-7/10. Accompanied by: Spouse Allergies atorvastatin [Lipitor] Allergy (Unknown, Verified 08/06/24 13:10) abd pain bupropion [From Wellbutrin] Allergy (Unknown, Verified 08/06/24 13:10) Nausea, Upset stomach buspirone [From BuSpar] Allergy (Unknown, Verified 08/06/24 13:10) anxiety, stomach duloxetine [Cymbalta] Allergy (Unknown, Verified 08/06/24 13:10) body burning gabapentin Allergy (Unknown, Verified 08/06/24 13:10) stomach upset paroxetine [Paxil] Allergy (Unknown, Verified 08/06/24 13:10) nausea and vomiting sertraline [Zoloft] Allergy (Unknown, Verified 08/06/24 13:10) anxiety venlafaxine [From Effexor] Allergy (Unknown, Verified 08/06/24 13:10) stomach upset HPI Comments Details: Gerald Taylor is very pleasant 69 years old male who came today as a follow- up in my office to discuss possibility of treatment of the lower back pain with interventional and or neuromodulation therapy. He reports pain exacerbation with prolonged sitting. He reports pain exacerbation with laying down. He had an MRI performed in [facility]. He reports that his pain is bilateral more on the right and less on the left radiating into the bilateral lower extremities to the level of the bilateral ankles but not below that level. He reports prolonged sitting aggravates his pain. He denies neurogenic claudication. He reports flexing forward aggravates his pain. He has Modic type changes at T11-T12 on the MRI however it has not amendable for the intercept treatment. Apparently the multiple marrow changes at the lower lumbar levels however endplates appear to be intact. The MRI description demonstrates among other things-see full description as below-moderate foraminal L4-5 stenosis bilaterally. I offered the patient to perform bilateral transforaminal epidural steroid injection and patient agreed to go for this procedure. We discussed again possibility of treating his pain with neuromodulation, spinal cord stimulation was discussed, the patient appears to be interested. We also discussed the need to perform psychological evaluation as the prerequisite for the neuromodulation. ? History of evaluation by Dr. Sykes with [facility].? No surgeries necessary.? As of thoracic spine pain his insurance would not cover thoracic medial branch blocks. ?Another pain generator is located in his lumbar spine. He reported that pain started in 1999. he reports the pain in the center of the lowest lumbar spine with radiation into the right lower extremity as well as numbness and numbing pain at the lower portion of the leg and the foot. He reports that this pain started in 2001 secondary to lifting heavy weights at his job. 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 He tried multiple interventions to help this pain including physical therapy chiropractic manipulation, acupuncture TENS unit, he tried full body extension exercises, he reports the only thing helps minimally in the past was body extension but other interventions were not effective. He received epidural steroid injections with [facility] they were designed to treat L4- 5 radiculopathy. He reports that injection helped minimally for few days and then the pain would come back. He had an MRI done for his lumbar spine on MRI he has T12-L1 normal as well as L1-L2 and L2-L3. L3-L4 minimal disc bulge without spinal canal stenosis mild facet arthropathy mild left and no significant right foraminal stenosis L4-5 there is mild diffuse disc bulge with small left paracentral annual tear flattening the ventral thecal sac and significantly narrowing the bilateral subarticular zones with the bilateral L5 traversing nerve roots contacting the bulging discs within the subarticular zone there is facet joint arthropathy there is posterior endplate spurs and facet joint arthropathy resulting in moderate left and right foraminal stenosis stable. L5-S1 facet arthropathy and ligamentum flavum thickening no disc bulging no spinal canal or foraminal stenos [facility] Medical History Muscle spasm GERD (gastroesophageal reflux disease) Abdominal pain Annual physical exam Arthralgia Fibromyalgia Depression HTN (hypertension) Hyperlipidemia Chronic pain syndrome Spondylosis of thoracic spine Spondylosis of lumbar spine Neuropathy Surgical History No pertinent past surgical history Family History Father Unknown family medical history Mother HTN (hypertension) Brother Chronic leukemia Social History Housing: House Patient Tobacco Use Status: Never used Tobacco e-Cigarette/Vaping Use: Never Used Current occupational status: retired Cognitive needs: No Hearing needs: No Vision needs: No Review of Systems Const All systems reviewed & are unremarkable except as noted in HPI and below ENT Reports Normal hearing present Neuro Reports Normal hearing present, Denies confusion and Denies Sensory deficit (Neuro) Psych Denies confusion Physical Exam Vital Signs: Last Vital Signs Pulse 99 08/06/24 13:08 Resp 16 08/06/24 13:08 BP 119/75 08/06/24 13:08 Pulse Ox 97 08/06/24 13:08 Oxygen Delivery Method Room Air 08/06/24 13:08 BMI result Body Mass Index 29.2 Const General: No confusion Orientation/consciousness: No confusion Eyes Pupils: Equal, round and reactive pupils present EOM: EOMs intact bilaterally Resp Effort & Inspection: normal respiratory effort, able to speak in complete sentences, normal respiratory pattern, no audible wheezes and no cough Cardio Jugular venous distension: no JVD GI Inspection: Yes normal to inspection Back/Spine/Pelvis Other: Palpation of the thoracic spine at the presume oval T7 area reveals severe pain on palpation in paraspinal and spinal regions. Palpation of lumbar spine in presume mobile L5 area also tender on palpation. More on spinal regions than the known paraspinal regions. Straight leg rising is a positive for pain increase on the right as well as pain increase on the left straight leg rising on the left causes pain on the right. The pain is of shooting nature and radiates all the way down to the ball of his foot. He also feels numbness during the pain episode. This presents classical radiculopathy.. I offered this patient foraminal bilateral L4-5 epidural steroid injection. The patient agreed to go for this procedure. If this is not effective we will start discussing neuromodulation. Neuro General: No confusion Cranial nerves: Yes Equal, round and reactive pupils present and Yes Normal hearing present Sensory Exam: No Sensory deficit (Neuro) Psych Appearance: grossly normal Mental Status: mental status grossly normal Speech and movement: Normal speech and movement present Affect: normal affect Attitude: cooperative Thought process: Normal thought process present Thought content: Normal thought content present Insight: Good insight present (Psych) Judgement: Good judgement present (Psych) Results Reviewed Results Reviewed: R LUMBAR SPINE WITHOUT CONTRAST CLINICAL INFORMATION: 73-year-old with spondylosis, without myelopathy or radiculopathy, lumbar region. Self reported increasing low back pain of 2 months duration and bilateral leg pain. COMPARISON: None available. TECHNIQUE: MRI of the lumbar spine was obtained using routine sequences without contrast. FINDINGS: Coronal Alignment: Slight lower lumbar dextrocurvature minimally convex to the right at L4-L5 and partially imaged thoracic levocurvature suspected. Suggest correlation with plain x-rays. Sagittal Alignment: Normal. Lumbosacral Junction: Normal. There are 5 mvt-nte-xanmeqq lumbar-type vertebral bodies. Vertebral Bodies: Vertebral body heights are well-maintained. No acute or nonhealed fractures. Disc Spaces and Endplates: Dmtq-ju-qjalmgeo intervertebral disc space height loss at T11-T12 with intradiscal loss of T2-weighted signal, consistent with disc degenerative change, with a tiny Schmorl's node along the superior endplate of T12 and minor spondylosis at this level. Lumbar intervertebral disc space heights demonstrate mild volume loss at L4-L5 with mild loss of intradiscal T2 weighted signal at the L3-L4 and L4-L5 levels. There is minor spondylosis at these two levels. Endplates appear grossly intact throughout the lumbar spine. Spinal Canal: No abnormal developmental findings. Bone Marrow: Diffusely heterogeneous bone marrow signal intensity is seen throughout the osseous structures on T1 and T2-weighted imaging, which is a nonspecific finding, but is possibly physiologic. No focally suspicious marrow-replacing process or bone marrow edema is identified. There is minor type I and type II marrow signal change along the endplates at T11-T12. Conus Medullaris: Terminates at L1-L2. Morphology and signal is normal. Intradural Nerve Roots: Within normal limits. L5-S1: Minor annular bulging noted with no significant thecal sac encroachment. No significant facet joint arthropathy or canal stenosis. Right posterolateral disc osteophyte complex noted. No significant neural foraminal stenosis. L4-L5: Concentric disc bulging is noted with flattening of the ventral dural sac, with left posterolateral disc osteophyte complex. There is qdwp-tk-ntyfwhip bilateral facet joint arthrosis with ligamentum flavum thickening and a slightly prominent dorsal fat pad. No significant central canal stenosis. There is crowding of the subarticular zones with mild encroachment on the traversing left L5 nerve root. There is moderate bilateral neural foraminal stenosis with disc bulging abutting the extraforaminal L4 nerve roots bilaterally. L3-L4: There is concentric disc bulging with mild flattening of the dural sac. There is mild right and yezm-kl-ckqubctq left-sided facet joint arthrosis. Ligamentum flavum thickening is noted asymmetric to the left, without central canal stenosis. There is awlv-eh-ujakevoy narrowing of the left subarticular zone, minimally encroaching on the left L4 nerve root. There is no significant neural foraminal stenosis. L2-L3: There is disc bulging asymmetric to the left, with a small posterolateral annular fissure on the left. Slight indentation of the ventral thecal sac is noted asymmetric to the left. Mild facet joint arthrosis is noted bilaterally. No significant canal or neural foraminal stenosis. L1-L2: Shallow right paramedian disc protrusion. No facet joint arthrosis, canal or neural foraminal stenosis. Broad-based central right paramedian disc herniation at T11-T12 with encroachment on the ventral thecal sac, asymmetric to the right without cord impingement or significant canal stenosis. Paravertebral and Included Extraspinal Soft Tissues: The visualized paravertebral soft tissues and included retroperitoneal structures are unremarkable within the limitations of the exam. MR/MR lumbar spine wo con IMPRESSION: 1. Mild S-shaped thoracolumbar scoliotic curvature. Suggest correlation with plain x-rays. 2. Discogenic degenerative changes primarily at T11-T12 and L4-L5, as discussed above, with multilevel disc bulging and disc osteophyte complexes, with multilevel bilateral facet joint arthrosis. No significant central canal stenosis. 3. Subarticular zone narrowing on the left at L4-L5 and on the left at L3-L4 with mild encroachment on the traversing left L5 and left L4 nerve roots respectively. 4. Moderate bilateral neural foraminal stenosis at L4-L5, with disc bulging abutting the extraforaminal L4 nerve roots bilaterally. 5. Central to right paramedian disc herniation at T11-T12 without cord impingement. Electronically signed by: Vicente Contreras MD 08/01/2024 05:10 PM EDT RP Assessment & Plan Assessment & Plan (1) Fibromyalgia: Code(s): M79.7 - Fibromyalgia Category: Medical (2) Arthralgia: Code(s): M25.50 - Pain in unspecified joint Category: Medical (3) Chronic pain syndrome: Code(s): G89.4 - Chronic pain syndrome Category: Medical (4) Spondylosis of thoracic spine: Code(s): M47.814 - Spondylosis without myelopathy or radiculopathy, thoracic region Category: Medical (5) Spondylosis of lumbar spine: Comment: Follow-up with [facility] Code(s): M47.816 - Spondylosis without myelopathy or radiculopathy, lumbar region Category: Medical (6) Neuropathy: Code(s): G62.9 - Polyneuropathy, unspecified Category: Medical (7) Radiculopathy, lumbar region: Code(s): M54.16 - Radiculopathy, lumbar region Category: Medical Plan I offered today several modalities to help this patient's pain. Considering his bilateral moderate foraminal stenosis at L4-5 I offered him to go for transforaminal epidural steroid injection L4-5 bilateral. The patient appeared to be interested I will schedule him for this procedure. We also discussed possibility of treating his pain with chronic opioid therapy. He is adamantly negative about it. I also mentioned briefly today neuromodulation. I told him that for neuromodulation he needs to go for psychological evaluation. The patient understood but he wants to try injections 1st. Coding Level of Care Code Est Pt Level 3 (29693) Diagnoses Fibromyalgia M79.7 Arthralgia M25.50 Chronic pain syndrome G89.4 Spondylosis of thoracic spine M47.814 Spondylosis of lumbar spine M47.816 Neuropathy G62.9 Radiculopathy, lumbar region M54.16
[2024-08-06 13:08] VITALS: BP 119/75; PULSE 99; RESP 16; O2SAT 97; BMI 29.2
== END 2024-08-06 13:14 | disposition home or self-care (01) ==
PROVIDERS: PCP Internal Medicine; Visit Provider Anesthesiology
DX: M79.7 Fibromyalgia (principal); M25.50 Pain in unspecified joint; G89.4 Chronic pain syndrome; M47.814 Spondylosis without myelopathy or radiculopathy, thoracic region; M47.816 Spondylosis without myelopathy or radiculopathy, lumbar region; G62.9 Polyneuropathy, unspecified; M54.16 Radiculopathy, lumbar region
CPT/HCPCS: 99213

== ENCOUNTER → 2024-08-06 12:49 | Outpatient (BNVA) | payer MEDICARE, MEDICAID, SELFPAY | PROVIDERS: PCP Internal Medicine; Visit Provider Anesthesiology | DX: M79.7 Fibromyalgia (principal); M25.50 Pain in unspecified joint; G89.4 Chronic pain syndrome; M47.814 Spondylosis without myelopathy or radiculopathy, thoracic region; M47.26 Other spondylosis with radiculopathy, lumbar region; G62.9 Polyneuropathy, unspecified | CPT/HCPCS: 99212 ==

== ENCOUNTER 2024-08-30 09:07 | Outpatient (AMB) | payer MEDICARE, MEDICAID, SELFPAY ==
[2024-08-30 09:15] VITALS: BP 122/78; PULSE 84; O2SAT 96; BMI 29.3
--- NOTE | 2024-08-30 09:15 | A.OFFPC_ITS ---
Vital Signs 08/30/24 09:15 Height 5 ft 8 in Weight 193 lb BMI 29.3 BP 122/78 Blood Pressure Location Lt brachial Position Sitting Pulse 84 Pulse Source Pulse Oximeter Pulse Oximetry (%) 96 Oxygen Delivery Method Room Air Intake Visit Reasons: 6 weeks Intake Note: Pt is here today for 6 weeks follow up visit. Allergies atorvastatin [Lipitor] Allergy (Unknown, Verified 08/30/24 09:17) abd pain bupropion [From Wellbutrin] Allergy (Unknown, Verified 08/30/24 09:17) Nausea, Upset stomach buspirone [From BuSpar] Allergy (Unknown, Verified 08/30/24 09:17) anxiety, stomach duloxetine [Cymbalta] Allergy (Unknown, Verified 08/30/24 09:17) body burning gabapentin Allergy (Unknown, Verified 08/30/24 09:17) stomach upset paroxetine [Paxil] Allergy (Unknown, Verified 08/30/24 09:17) nausea and vomiting sertraline [Zoloft] Allergy (Unknown, Verified 08/30/24 09:17) anxiety venlafaxine [From Effexor] Allergy (Unknown, Verified 08/30/24 09:17) stomach upset Medication List - Last Reconciled 08/30/24 by Dilma Garcia MD aripiprazole 4 mg PO clonazepam mg PO DAILY dutasteride (Avodart) 0.5 mg PO DAILY escitalopram oxalate 15 mg PO lisinopril 10 mg PO BID mirtazapine 45 mg PO DAILY Neurontin (gabapentin) 300 mg PO TID 30 days NS rosuvastatin 10 mg PO DAILY triamcinolone acetonide 0.025% 1 appl topical DAILY Tobacco use date assessed: 08/30/24 Fall risk assessment: No Falls in past year Last assessed Fall Risk: 08/30/24 Dental Screening Dental Screen Date: 07/19/24 HPI 6 weeks HPI Details Pt presents for HTN HYPERLIPIDEMIA STABLE ON CURRENT MEDICATIONS. HE FOLLOWS UP WITH A PSYCHIATRIST FOR CHRONIC DEPRESSION CONTROLLED ON CURRENT MEDICATIONS [facility] Medical History Muscle spasm GERD (gastroesophageal reflux disease) Abdominal pain Annual physical exam Arthralgia Fibromyalgia Depression HTN (hypertension) Hyperlipidemia Chronic pain syndrome Spondylosis of thoracic spine Spondylosis of lumbar spine Neuropathy Surgical History No pertinent past surgical history Family History Father Unknown family medical history Mother HTN (hypertension) Brother Chronic leukemia Social History Housing: House Patient Tobacco Use Status: Never used Tobacco e-Cigarette/Vaping Use: Never Used service: No Current occupational status: retired Cognitive needs: No Hearing needs: No Vision needs: No Questionnaire Thrive Questionnaire Date Thrive assessed: 08/23/24 I am a: Patient What is your living situation today?: I have a steady place to live Within the past 12 months, did the food you bought not last and you didn't have the money to get more?: I choose not to answer this question Within the past 12 months, did you worry whether your food would run out before you got money to buy more?: I choose not to answer this question Do you have trouble paying for medicines?: I choose not to answer this question Do you have trouble getting transportation to medical appointments?: I choose not to answer this question Do you have trouble paying your heating and electricity bill?: I choose not to answer this question Do you have trouble taking care of your child, family member or friend?: I choose not to answer this question Do you have trouble with day-to-day activities such as bathing, preparing meals, shopping, managing finances, etc.?: I choose not to answer this question Are you interested in more education?: I choose not to answer this question Please select the resources that you would like help with: None Currently or been in a relationship where the following occur: I choose not to answer THRIVE Score: 0 AUDIT C Alcohol Use Questionnaire (AUDIT-C) 1. How often do you have a drink containing alcohol?: Never Total Score: 0 GILSON-7 AMB Questionnaire GILSON-7 Date GILSON - 7 assessed: 07/19/24 Feeling nervous, anxious, or on edge: 0 = Not at all Not being able to stop or control worryin = Not at all Worrying too much about different things: 0 = Not at all Trouble relaxin = Not at all Being so restless that it is hard to sit still: 0 = Not at all Becoming easily annoyed or irritable: 0 = Not at all Feeling afraid as if something awful might happen: 0 = Not at all Total GILSON-7 score (0-4 normal; 5-9 mild; 10-14 moderate; 15-21 severe): 0 Source: Developed by Drs. Zeke Antony, Tala Lindsey, Bradly Rainey and colleagues, with an educational bunny from [employer]. Review of Systems Const All systems reviewed & are unremarkable except as noted in HPI and below Card Reports no additional complaints Resp Reports no additional complaints GI Reports no additional complaints Reports no additional complaints Physical exam (Primary Care) Vital Signs: Last Vital Signs Pulse 84 08/30/24 09:15 BP 122/78 08/30/24 09:15 Pulse Ox 96 08/30/24 09:15 Oxygen Delivery Method Room Air 08/30/24 09:15 BMI result Body Mass Index 29.3 Tobacco/Smoking Status: Tobacco use Status Tobacco use date assessed 08/30/24 08/30/24 09:20 Patient Tobacco Use Status Never used Tobacco 08/30/24 09:20 e-Cigarette/Vaping Use Never Used 08/30/24 09:20 Thrive Assessment: Date of Thrive Assessment Date Thrive assessed 08/23/24 08/30/24 09:20 Currently or been in a relationship where the following occur: I choose not to answer Const General: no acute distress HENMT Head: Yes normal to inspection Neck Neck: Yes supple Resp Effort & Inspection: normal respiratory effort Auscultation: clear to auscultation bilaterally Cardio Rhythm: regular rhythm Heart sounds: S1 normal heart sound present and S2 normal heart sound present GI Inspection: Yes normal to inspection Palpation (GI): Soft to palpation Percussion: Yes normal to percussion Coding Level of Care Code Est Pt Level 3 (01559) Diagnoses Hyperlipidemia E78.5 HTN (hypertension) I10 Annual physical exam Z00.00 Assessment & Plan Assessment & Plan (1) Hyperlipidemia: Code(s): E78.5 - Hyperlipidemia, unspecified Category: Medical Plan: Continue Crestor, add fish oil for elevated triglycerides (2) HTN (hypertension): Code(s): I10 - Essential (primary) hypertension Category: Medical Plan: Continue current medications (3) Annual physical exam: Code(s): Z00.00 - Encounter for general adult medical examination without abnormal findings Category: Medical Plan: Return for physical in July Orders: Orders Complete Blood Count Auto Diff 11 Months E78.5 - Hyperlipidemia, unspecified, I10 - Essential (primary) hypertension, Z00.00 - Encounter for general adult medical examination without abnormal findings Vitamin D 25-OH Total 11 Months E78.5 - Hyperlipidemia, unspecified, I10 - Essential (primary) hypertension, Z00.00 - Encounter for general adult medical examination without abnormal findings UA w Microscopic 11 Months E78.5 - Hyperlipidemia, unspecified, I10 - Essential (primary) hypertension, Z00.00 - Encounter for general adult medical examination without abnormal findings Comprehensive [place]. Panel Fast 11 Months E78.5 - Hyperlipidemia, unspecified, I10 - Essential (primary) hypertension, Z00.00 - Encounter for general adult medical examination without abnormal findings Lipid Panel 11 Months E78.5 - Hyperlipidemia, unspecified, I10 - Essential (primary) hypertension, Z00.00 - Encounter for general adult medical examination without abnormal findings Vitamin B12 and Folate 11 Months E78.5 - Hyperlipidemia, unspecified, I10 - Essential (primary) hypertension, Z00.00 - Encounter for general adult medical examination without abnormal findings PSA,Total (Free>4and<10) 11 Months E78.5 - Hyperlipidemia, unspecified, I10 - Essential (primary) hypertension, Z00.00 - Encounter for general adult medical examination without abnormal findings
== END 2024-08-30 10:03 | disposition home or self-care (01) ==
PROVIDERS: PCP Internal Medicine; Visit Provider Internal Medicine
DX: E78.5 Hyperlipidemia, unspecified (principal); I10 Essential (primary) hypertension; Z00.00 Encounter for general adult medical examination without abnormal findings

== ENCOUNTER → 2024-08-30 09:07 | Outpatient (BNVA) | payer MEDICARE, MEDICAID, SELFPAY | PROVIDERS: PCP Internal Medicine; Visit Provider Internal Medicine | DX: E78.5 Hyperlipidemia, unspecified (principal); I10 Essential (primary) hypertension | CPT/HCPCS: 99212 ==

== ENCOUNTER 2025-02-26 08:47 | Outpatient (AMB) | payer MEDICARE, MEDICAID, SELFPAY ==
--- NOTE | 2025-02-26 08:50 | A.OFFPC_ITS ---
Vital Signs 02/26/25 08:51 Height 5 ft 8 in Weight 200 lb BMI 30.4 BP 120/76 Blood Pressure Location Lt brachial Position Sitting Respiration 18 Pulse 84 Pulse Source Pulse Oximeter Temp 97.6 F Temp Source Oral Pulse Oximetry (%) 95 Oxygen Delivery Method Room Air Intake Visit Reasons: 6 month follow up Intake Note: Pt is here today for 6 months follow up visit. Allergies atorvastatin [Lipitor] Allergy (Unknown, Verified 02/26/25 08:52) abd pain bupropion [From Wellbutrin] Allergy (Unknown, Verified 02/26/25 08:52) Nausea, Upset stomach buspirone [From BuSpar] Allergy (Unknown, Verified 02/26/25 08:52) anxiety, stomach duloxetine [Cymbalta] Allergy (Unknown, Verified 02/26/25 08:52) body burning gabapentin Allergy (Unknown, Verified 02/26/25 08:52) stomach upset paroxetine [Paxil] Allergy (Unknown, Verified 02/26/25 08:52) nausea and vomiting sertraline [Zoloft] Allergy (Unknown, Verified 02/26/25 08:52) anxiety venlafaxine [From Effexor] Allergy (Unknown, Verified 02/26/25 08:52) stomach upset Medication List - Last Reconciled 02/26/25 by Dilma Garcia MD aripiprazole 4 mg PO clonazepam mg PO DAILY dutasteride (Avodart) 0.5 mg PO DAILY escitalopram oxalate 20 mg PO lisinopril 10 mg PO BID mirtazapine 45 mg PO DAILY Neurontin (gabapentin) 300 mg PO TID 30 days NS rosuvastatin 10 mg PO DAILY triamcinolone acetonide 0.025% 1 appl topical DAILY Tobacco use date assessed: 02/26/25 Fall risk assessment: No Falls in past year Last assessed Fall Risk: 02/26/25 Dental Screening Dental Screen Date: 02/26/25 Did you have a dental visit in the last 12 months?: Yes Did you have a dental problem in the last 6 months where you did not have access to dental care?: No Was dental information given to patient?: Patient has dentist HPI 6 month follow up HPI Details Patient presents for the follow-up on hypertension hyperlipidemia contr olled on current medications. He follows up with the Psychiatry for chronic depression anxiety, stable on current medications [facility] Medical History Muscle spasm GERD (gastroesophageal reflux disease) Abdominal pain Annual physical exam Arthralgia Fibromyalgia Depression HTN (hypertension) Hyperlipidemia Chronic pain syndrome Spondylosis of thoracic spine Spondylosis of lumbar spine Neuropathy Surgical History No pertinent past surgical history Family History Father Unknown family medical history Mother HTN (hypertension) Brother Chronic leukemia Social History Housing: House Patient Tobacco Use Status: Never used Tobacco e-Cigarette/Vaping Use: Never Used service: No Current occupational status: retired Cognitive needs: No Hearing needs: No Vision needs: No Questionnaire PHQ-9 Over the last 2 weeks, how often have you been bothered by any of the following problems? 1. Little interest or pleasure in doing things: not at all 2. Feeling down, depressed, or hopeless: not at all 3. Trouble falling or staying asleep, or sleeping too much: not at all 4. Feeling tired or having little energy: not at all 5. Poor appetite or overeating: not at all 6. Feeling bad about yourself - or that you are a failure or have let yourself or your family down: not at all 7. Trouble concentrating on things, such as reading the newspaper or watching television: not at all 8. Moving or speaking so slowly that other people could have noticed. Or the opposite - being so fidgety or restless that you have been moving around a lot more than usual: not at all 9. Thoughts that you would be better off or of hurting yourself in some way: not at all Total score: 0 Depression Screening Interpretation: Negative Depression Screening Done: Yes 26337 - PHQ-9 Billing: Yes Source: Developed by Drs. Zeke Antony, Tala Lindsey, Bradly Rainey and colleagues, with an educational bunny from [employer]. Thrive Questionnaire Date Thrive assessed: 02/26/25 I am a: Patient What is your living situation today?: I have a steady place to live Within the past 12 months, did the food you bought not last and you didn't have the money to get more?: I choose not to answer this question Within the past 12 months, did you worry whether your food would run out before you got money to buy more?: I choose not to answer this question Do you have trouble paying for medicines?: No Do you have trouble getting transportation to medical appointments?: No Do you have trouble paying your heating and electricity bill?: No Do you have trouble taking care of your child, family member or friend?: No Do you have trouble with day-to-day activities such as bathing, preparing meals, shopping, managing finances, etc.?: No Are you currently unemployed and looking for a job?: No Are you interested in more education?: No Please select the resources that you would like help with: None Currently or been in a relationship where the following occur: No concerns reported THRIVE Score: 0 AUDIT C Alcohol Use Questionnaire (AUDIT-C) 1. How often do you have a drink containing alcohol?: Never 3. How often do you have six or more drinks on one occasion?: Never Total Score: 0 GILSON-7 AMB Questionnaire GILSON-7 Date GILSON - 7 assessed: 02/26/25 Feeling nervous, anxious, or on edge: 0 = Not at all Not being able to stop or control worryin = Not at all Worrying too much about different things: 0 = Not at all Trouble relaxin = Not at all Becoming easily annoyed or irritable: 0 = Not at all Feeling afraid as if something awful might happen: 0 = Not at all Source: Developed by Drs. Zeke Antony, Tala Lindsey, Bradly Rainey and colleagues, with an educational bunny from [employer]. GILSON-7 Assessment Billing GILSON-7 Assessment Tool: GILSON-7 Assessment 94761 Review of Systems Const All systems reviewed & are unremarkable except as noted in HPI and below Eyes Reports no additional complaints ENT Reports no additional complaints Card Reports no additional complaints Resp Reports no additional complaints GI Reports no additional complaints Reports no additional complaints Physical exam (Primary Care) Vital Signs: Last Vital Signs Temp 97.6 F 02/26/25 08:51 Pulse 84 02/26/25 08:51 Resp 18 02/26/25 08:51 BP 120/76 02/26/25 08:51 Pulse Ox 95 02/26/25 08:51 Oxygen Delivery Method Room Air 02/26/25 08:51 BMI result Body Mass Index 30.4 Tobacco/Smoking Status: Tobacco use Status Tobacco use date assessed 02/26/25 02/26/25 08:55 Patient Tobacco Use Status Never used Tobacco 02/26/25 08:51 e-Cigarette/Vaping Use Never Used 02/26/25 08:51 PHQ-9: PHQ-9 Score PHQ-9: Total score 0 02/26/25 09:15 Depression Screening Interpretation: Negative Thrive Assessment: Date of Thrive Assessment Date Thrive assessed 02/26/25 02/26/25 08:56 Currently or been in a relationship where the following occur: No concerns reported Const General: no acute distress HENMT Head: Yes normal to inspection Ears: hearing grossly normal bilaterally Face and sinus: Yes normal facial exam Mouth: Normal oral and palatal mucosa present Throat: Yes posterior oropharynx normal Eyes General: appearance normal, both eyes and all related structures Resp Effort & Inspection: normal respiratory effort Auscultation: clear to auscultation bilaterally Cardio Rhythm: regular rhythm Heart sounds: S1 normal heart sound present and S2 normal heart sound present GI Inspection: Yes normal to inspection Palpation (GI): Soft to palpation Immunizations pneumoc 20-anay conj-dip cr(PF) 0.5 mL IM syringe Performing Provider: Dilma Garcia MD [place] [facility] [place] [facility] Administered by: WANG Smith on 02/26/25 09:15 Dose Route Admin Location Dispensed Lot Number Expiration Date [facility] Cane Packer 0.5 mL IM Left Deltoid 0.5 mL [id number] 05/20/26 [employer] VIS Given Date VIS Provided VIS Publication Date 02/26/25 Single Vaccine 21 Eligibility Eligibility Date Funding Source Not [facility] Eligible 02/26/25 Private Coding Level of Care Code Est Pt Level 4 (60854) Diagnoses HTN (hypertension) I10 Hyperlipidemia E78.5 Depression F32.9 Additional Codes GILSON-7 Assessment Billing - GILSON-7 Assessment Tool: GILSON-7 Assessment 37501 ([id number]) PHQ-9 - 34403 - PHQ-9 Billing: Yes ([id number]) Assessment & Plan Assessment & Plan (1) HTN (hypertension): Code(s): I10 - Essential (primary) hypertension Category: Medical Plan: Continue Lisinopril (2) Hyperlipidemia: Code(s): E78.5 - Hyperlipidemia, unspecified Category: Medical Plan: Continue statin (3) Depression: Comment: Established with psychiatrist and therapist Code(s): F32.9 - Major depressive disorder, single episode, unspecified Category: Medical Plan: Continue current medications and follow-up with the psychiatry Orders: Orders Hemoglobin A1c Today E78.5 - Hyperlipidemia, unspecified, I10 - Essential (primary) hypertension Hemoglobin A1c 5 Months E78.5 - Hyperlipidemia, unspecified, I10 - Essential (primary) hypertension, R73.9 - Hyperglycemia, unspecified UA w Microscopic 5 Months E78.5 - Hyperlipidemia, unspecified, I10 - Essential (primary) hypertension, R73.9 - Hyperglycemia, unspecified Comprehensive [place]. Panel Fast Today E78.5 - Hyperlipidemia, unspecified, I10 - Essential (primary) hypertension Lipid Panel Today E78.5 - Hyperlipidemia, unspecified, I10 - Essential (primary) hypertension Pneumococcal 20 Immunization Today Z23 - Encounter for immunization Comprehensive [place]. Panel Fast 5 Months E78.5 - Hyperlipidemia, unspecified, I10 - Essential (primary) hypertension, R73.9 - Hyperglycemia, unspecified Lipid Panel 5 Months E78.5 - Hyperlipidemia, unspecified, I10 - Essential (primary) hypertension, R73.9 - Hyperglycemia, unspecified Complete Blood Count Auto Diff 5 Months E78.5 - Hyperlipidemia, unspecified, I10 - Essential (primary) hypertension, R73.9 - Hyperglycemia, unspecified Microalbumin, Random (w Creat) 5 Months E78.5 - Hyperlipidemia, unspecified, I10 - Essential (primary) hypertension, R73.9 - Hyperglycemia, unspecified
[2025-02-26 08:51] VITALS: BP 120/76; PULSE 84; RESP 18; TEMP 36.4; O2SAT 95; BMI 30.4
== END 2025-02-26 09:32 | disposition home or self-care (01) ==
LOC: HO.HMCC 08:47
PROVIDERS: PCP Internal Medicine; Visit Provider Internal Medicine
DX: I10 Essential (primary) hypertension (principal); E78.5 Hyperlipidemia, unspecified; F32.9 Major depressive disorder, single episode, unspecified; Z23 Encounter for immunization

== ENCOUNTER → 2025-02-26 08:47 | Outpatient (BNVA) | payer MEDICARE, MEDICAID, SELFPAY | PROVIDERS: PCP Internal Medicine; Visit Provider Internal Medicine | DX: I10 Essential (primary) hypertension (principal); E78.5 Hyperlipidemia, unspecified; F32.9 Major depressive disorder, single episode, unspecified; R73.9 Hyperglycemia, unspecified; Z23 Encounter for immunization | CPT/HCPCS: 90471; 90677; 96127; 99212 ==

== ENCOUNTER 2025-02-27 07:24 | Outpatient (REF) | payer MEDICARE, MEDICAID, SELFPAY ==
[2025-02-27 11:07] LABS: Estimated Average Glucose 128 mg/dL; Hemoglobin A1C 163.7814 umol/L; Hemoglobin A1c % 6.1 % (<6.0); Total Hemoglobin (HGBA1C) 3757.7743 umol/L
[2025-02-27 11:37] LABS: Alanine Aminotransferase 45 U/L (0-40); Albumin Level 4.5 g/dL (3.5-5.0); Alkaline Phosphatase 42 U/L (39-117); Anion Gap 11 (12-20); Aspartate Amino Transferase 35 U/L (5-37); Bilirubin Total 1.1 mg/dL (0.0-1.0); Blood Urea Nitrogen 21 mg/dL (9-16); Calcium 9.4 mg/dL (8.4-10.2); Carbon Dioxide 25 mmol/L (22-29); Chloride 105 mmol/L (96-108); Cholesterol 165 mg/dL (<200); Estimated Glomerular Filt Rate 57; Glucose Fasting 109 mg/dL (60-99); HDL Cholesterol 40 mg/dL (>40); LDL Cholesterol Calculated 83 mg/dL (<100); Potassium 4.3 mmol/L (3.3-5.1); Sodium 137 mmol/L (135-145); Total Protein 7.9 g/dL (6.5-8.0); Triglycerides 211 mg/dL (<150)
== END 2025-02-27 07:25 | disposition home or self-care (01) ==
LOC: HO.HMGCLDS 07:24
PROVIDERS: PCP Internal Medicine; Visit Provider Internal Medicine
DX: I10 Essential (primary) hypertension (principal); E78.5 Hyperlipidemia, unspecified; Z13.1 Encounter for screening for diabetes mellitus
CPT/HCPCS: 36415; 80053; 80061; 83036

== ENCOUNTER 2025-06-17 09:58 | Outpatient (REF) | payer MEDICARE, MEDICAID, SELFPAY ==
[2025-06-17 10:48] VITALS: BP 128/65; PULSE 89; RESP 16; O2SAT 96; BMI 28.1
--- OUTSIDE RECORDS SUMMARY | 2025-06-17 11:01 | XMS_ITS | Clinical Summary ---
Author Organization [facility] Address [address] [place] [id number] Phone Care Team Providers Care Decorating And Assembly Supervisor Name Role Phone Dilma Garcia MD Primary Care Provider [phone] Allergies Active Allergy Reactions Criticality Noted Date Comments Atorvastatin Pain Low 01/29/2021 Abdominal pain Buspirone Anxiety,GI Upset Low 01/29/2021 Duloxetine 01/29/2021 Body burning Gabapentin GI Upset 01/29/2021 Paroxetine Hcl Nausea and/or Vomiting Sertraline Anxiety Low 01/29/2021 Venlafaxine GI Upset 01/29/2021 Bupropion Hcl GI Upset,Nausea and/ or Vomiting 01/29/2021 Medications baclofen (LIORESAL) 10 MG tablet Take 10 mg by mouth nightly at bedtime. Active clonazePAM (KLONOPIN) 0.5 MG tablet Take 0.5 mg by mouth daily as needed. Active dutasteride (AVODART) 0.5 mg capsule Take 0.5 mg by mouth daily. Active lisinopril (PRINIVIL,ZESTR IL) 10 MG tablet Take 15 mg by mouth daily. Active mirtazapine (REMERON) 45 MG tablet Take 45 mg by mouth nightly at bedtime. Active QUEtiapine (SEROQUEL) 25 MG tablet Take 25 mg by mouth nightly at bedtime. Active rosuvastatin (CRESTOR) 10 MG tablet Take 10 mg by mouth daily. Active famotidine (PEPCID) 10 MG tablet Take 10 mg by mouth daily. Active gabapentin (GRALISE) 600 mg ER tablet Take by mouth daily with dinner. Active Active Problems Problem Noted Date Diagnosed Date Low back pain 02/02/2021 Assessment & Plan (02/03/2021 8:23 PM EDT): Joint protection, energy conservation. Gentle, regular exercise routine. Avoid falls, injuries, overuse. Keep body weight in ideal range for his height. He may benefit from topical cream such as Arnica, Biofreeze, Aspercreme versus medicated patches such as salonpas, icy hot patch 2-3 times daily and if necessary at bedtime x 3 weeks. I have instructed him to measure the time from the beginning of his walking to the first sign of back pain and when going for next walk set the timer shorter by 1 minute from the time that brought his back pain on an initial measured walk and build up gradually every 7-14 days by no more than 10% of tolerable time up to the goal of 45-60 minutes walk daily. He may benefit from splitting his walk in shorter sessions and take some breaks in between. Additional benefit may be achieved from including gentle yoga versus chiropractor versus acupuncture. If symptoms not improving or progressing despite above measures may need to consider further work-up including repeating EMG/NCS. Chronic midline thoracic back pain 02/02/2021 Assessment & Plan (02/03/2021 8:34 PM EDT): Joint protection, energy conservation. Gentle, regular exercise routine. Proper posture. Avoid falls, injuries, overuse. Use warm pack versus warm shower or warm bath prior to gentle, regular exercise routine as educated by PT with ultrasound and consideration for TENS unit. He may benefit from topical cream such as Arnica, Biofreeze, Aspercreme versus medicated patches such as salonpas, icy hot patch 2-3 times daily and if necessary at bedtime x 3 weeks. He is encouraged to restart gradually working in his favorite woodworking shop as tolerated by his body to keep his mind focused on his beloved activities/hobby. He may benefit additionally by improving his stress management strategies: Regular relaxation/meditation sessions. Vitamin D insufficiency 02/02/2021 Assessment & Plan (02/03/2021 8:16 PM EDT): To make sure that she does not need for additional supplementation I requested serum level today. Gastroesophageal reflux disease without esophagi tis 02/02/2021 Assessment & Plan (02/03/2021 8:18 PM EDT): Avoid late, large, spicy meals. Keep headboard elevated at 45 angle for nighttime. 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 Myalgia 02/02/2021 Assessment & Plan (02/03/2021 8:19 PM EDT): Proper hydration. Gentle, regular stretching and muscle strengthening To make sure that there is no muscle inflammation I requested CPK. On statin therapy 02/02/2021 Assessment & Plan (02/03/2021 8:28 PM EDT): Monitor for muscle tenderness, swelling and weakness Weight gain 02/02/2021 Assessment & Plan (02/03/2021 8:17 PM EDT): In view of 10 pounds weight gain I have requested TSH today. Family History Medical History Relation Comments Leukemia Brother Hypertension Mother Relation Status Comments Brother Father Mother Social History Tobacco Use Types Packs/Day Years Used Date Smoking Tobacco: Never Smokeless Tobacco: Never Education Answer Date Recorded Are you interested in more education? Not on ze e 03/18/2023 Are you concerned about learning? Not on file 03/18/2023 No 03/18/2023 No 03/18/2023 Digital Access Answer Date Recorded No 04/16/2023 No 04/16/2023 Reliable internet access at home? Not on file 04/16/2023 Device with a working camera? Not on file Sex and Gender Information Value Date Recorded Sex Assigned at Not on file Legal Sex Male 1:07 PM EDT Gender Identity Not on file Sexual Orientation Not on file Last Filed Vital Signs Vital Sign Reading Time Taken Comments Blood Pressure 122/82 02/02/2021 2:53 PM EDT Pulse - - Temperature - - Respiratory Rate - - Oxygen Saturation - - Inhaled Oxygen Concentration - - Weight 85.1 kg (187 lb 9.6 oz) 02/03/20 2:53 PM EDT with shoes Height 175.3 cm (5' 9 ) 02/02/2021 2:53 PM EDT Body Mass Index 27.7 02/02/2021 2:53 PM EDT Plan of Treatment Health Maintenance Due Date Last Done Comments Adult Td,Tdap Booster 1950 LIPID PANEL 1950 DEPRESSION SCREENING 1962 HEPATITIS C SCREENING 1968 COLOGUARD 1995 COLONOSCOPY 1995 COLORECTAL CANCER SCREENING 1995 FIT TEST 1995 FOBT 1995 SIGMOIDOSCOPY 1995 VIRTUAL COLONOSCOPY 1995 PNEUMOCOCCAL VACCINES (50+ y ears) (1 of 1 - PCV) 2000 ZOSTER VACCINES (1 of 2) 2000 CREATININE LEVEL 02/02/2022 02/02/2021 POTASSIUM LEVEL 02/02/2022 02/02/2021 COVID-19 VACCINE (2 - 2023-2 5 season) 2024 02/05/2021 RSV VACCINE (1 - 1-dose 75+ series) 2025 SMOKING STATUS SCREENING (On ce After 26 Yrs) Completed 02/02/2021 HEPATITIS A VACCINES Aged Out No long er eligible based on patient's age to complete this topic HIB VACCINES Aged Out No longer eligi ble based on patient's age to complete this topic MENINGOCOCCAL VACCINES (ACWY) Aged Out No longer eligible based on patient's age to complete this topic MENINGOCOCCAL VACCINES (B) Aged Out N o longer eligible based on patient's age to complete this topic Medical Devices Not on file Procedures Procedure Name Priority Date/Time Associated Diagnosis Comments COMPREHENSIVE METABOLIC PANEL Routine 02/02/2021 3:56 PM EDT Chronic midline low back pain without sciatica Chronic midline thoracic back pain Gastroesophageal reflux disease without esophagitis from Last 3 Months or Most Recently Relevant to Health Maintenance Results * (ABNORMAL) Comprehensive metabolic panel (02/02/2021 3:56 PM EDT) SODIUM 132(L) 133 - 146 mmol/L [facility] POTASSIUM 4.5 3.3 - 5.1 mmol/L [facility] CHLORIDE 100 96 - 108 mmol/L [facility] CO2 22 21 - 35 mmol/L [facility] BUN 23(H) 6 - 19 mg/dL [facility] CREATININE 1.20 0.5 - 1.5 mg/dL [facility] GLUCOSE 88 70 - 99 mg/dL [facility] ALBUMIN 4.5 3.9 - 4.8 g/dL [facility] TOTAL PROTEIN 8.0 6.5 - 8.0 g/dL [facility] CALCIUM 9.1 8.4 - 10.3 mg/dL [facility] ALKALINE PHOSPHATASE 50 39 - 117 U/L [facility] TOTAL BILIRUBIN 0.5 0.0 - 1.2 mg/dL [facility] AST 26 0 - 37 U/L [facility] ALT 24 0 - 40 U/L [facility] GLOBULIN 3.5 1 - 4.8 g/dL [facility] EGFR 61 >59 mL/min/1.7 3m2 [facility] Comment:Estimated glomerular filtration rate calculated using the CKD-EPI equation. ANION GAP 15 10 - 20 mmol/L [facility] Blood 02/02/2021 3:56 PM EDT 02/02/2021 4:00 PM EDT us Neha Tripathi MD LAB BLOOD ORDERABLES Fin al Result [facility] [address] [place] [address] from Last 3 Months or Most Recently Relevant to Health Maintenance Insurance MEDICARE PART A & B HEALTH MEDICARE PART A & [place] [id number] MEDICARE [place] & [place] B [employer] MEDICARE PART A & [place] & B [facility] MEDICARE PART A & [place] Care Teams Decorating And Assembly Supervisor Relationship Specialty Start Date End Date Dilma Garcia MD [address] [facility] [place] [address] PCP - General Internal Medicine 06/18/19 Additional Source Comments The information contained in this document represents components of the legal health record. It is not the complete legal health record.[facility]
== END 2025-06-17 09:59 | disposition home or self-care (01) ==
LOC: HO.MS 09:58
PROVIDERS: PCP Internal Medicine; Visit Provider Ophthalmology
PROC: (CPT 67840; principal; 2025-06-17 10:30)
DX: C44.1122 Basal cell carcinoma of skin of right lower eyelid, including canthus (principal); L82.1 Other seborrheic keratosis; Z85.828 Personal history of other malignant neoplasm of skin
CPT/HCPCS: 67840; 88305; 88331; 88332; J2004

== ENCOUNTER 2025-09-20 09:02 | Outpatient (AMB) | payer MEDICARE, MEDICAID, SELFPAY ==
[2025-09-20 09:09] VITALS: BP 122/80; PULSE 78; RESP 16; TEMP 36.4; O2SAT 97; BMI 29.5
--- NOTE | 2025-09-20 09:09 | MHC.PC.OV ---
Vital Signs 09/20/25 09:09 Height 5 ft 9 in Weight 200 lb BMI 29.5 BP 122/80 Blood Pressure Location Lt brachial Position Sitting Respiration 16 Pulse 78 Pulse Source Pulse Oximeter Temp 97.6 F Temp Source Oral Pulse Oximetry (%) 97 Oxygen Delivery Method Room Air Intake Visit Reasons: PE/secondary covers PE Intake Note: Pt is here today for PE. Pt states that he needs a refill on cholesterol medication. Allergies atorvastatin (Lipitor) Allergy (Unknown, Verified 09/20/25 09:10) abd pain bupropion (From Wellbutrin) Allergy (Unknown, Verified 09/20/25 09:10) Nausea, Upset stomach buspirone (From BuSpar) Allergy (Unknown, Verified 09/20/25 09:10) anxiety, stomach duloxetine (Cymbalta) Allergy (Unknown, Verified 09/20/25 09:10) body burning gabapentin Allergy (Unknown, Verified 09/20/25 09:10) stomach upset paroxetine (Paxil) Allergy (Unknown, Verified 09/20/25 09:10) nausea and vomiting sertraline (Zoloft) Allergy (Unknown, Verified 09/20/25 09:10) anxiety venlafaxine (From Effexor) Allergy (Unknown, Verified 09/20/25 09:10) stomach upset Medication List - Last Reconciled 09/20/25 by Dilma Garcia MD aripiprazole 4 mg PO clonazepam mg PO DAILY dutasteride (Avodart) 0.5 mg PO DAILY escitalopram oxalate 20 mg PO lisinopril 10 mg PO BID mirtazapine 45 mg PO DAILY Neurontin (gabapentin) 300 mg PO TID 30 days NS rosuvastatin 10 mg PO DAILY triamcinolone acetonide 0.025% 1 appl topical DAILY Tobacco use date assessed: 09/20/25 Fall risk assessment: No Falls in past year Last assessed Fall Risk: 09/20/25 Dental Screening Dental Screen Date: 02/26/25 HPI PE/secondary covers PE HPI Details Patient presents for physical. 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 1. Little interest or pleasure in doing things: not at all 2. Feeling down, depressed, or hopeless: not at all 3. Trouble falling or staying asleep, or sleeping too much: not at all 4. Feeling tired or having little energy: not at all 5. Poor appetite or overeating: not at all 6. Feeling bad about yourself - or that you are a failure or have let yourself or your family down: not at all 7. Trouble concentrating on things, such as reading the newspaper or watching television: not at all 8. Moving or speaking so slowly that other people could have noticed. Or the opposite - being so fidgety or restless that you have been moving around a lot more than usual: not at all 9. Thoughts that you would be better off or of hurting yourself in some way: not at all Total score: 0 Depression Screening Interpretation: Negative Depression Screening Done: Yes Source: Developed by Drs. Zkee Antony, Tala Lindsey, Bradly Rainey and colleagues, with an educational bunny from [employer] Thrive Questionnaire Date Thrive assessed: 02/23/25 I am a: Patient What is your living situation today?: I have a steady place to live Within the past 12 months, did the food you bought not last and you didn't have the money to get more?: I choose not to answer this question Within the past 12 months, did you worry whether your food would run out before you got money to buy more?: I choose not to answer this question Do you have trouble paying for medicines?: No Do you have trouble getting transportation to medical appointments?: No Do you have trouble paying your heating and electricity bill?: No Do you have trouble taking care of your child, family member or friend?: No Do you have trouble with day-to-day activities such as bathing, preparing meals, shopping, managing finances, etc.?: No Are you currently unemployed and looking for a job?: No Are you interested in more education?: No Please select the resources that you would like help with: None Currently or been in a relationship where the following occur: No concerns reported THRIVE Score: 0 AUDIT C Alcohol Use Questionnaire (AUDIT-C) 2. How many drinks containing alcohol do you have on a typical day when you are drinking?: 1 or 2 3. How often do you have six or more drinks on one occasion?: Never Total Score: 0 GILSON-7 AMB Questionnaire GILSON-7 Date GILSON - 7 assessed: 02/26/25 Feeling nervous, anxious, or on edge: 1 = Several days Worrying too much about different things: 1 = Several days Trouble relaxin = Not at all Being so restless that it is hard to sit still: 1 = Several days Becoming easily annoyed or irritable: 0 = Not at all Feeling afraid as if something awful might happen: 0 = Not at all Source: Developed by Drs. Zeke Antony, Tala Lindsey, Bradly Rainey and colleagues, with an educational bunny from [employer] Review of Systems Const All systems reviewed & are unremarkable except as noted in HPI and below Eyes Reports no additional complaints ENT Reports no additional complaints Card Reports no additional complaints Resp Reports no additional complaints GI Reports no additional complaints Reports no additional complaints Physical exam (Primary Care) Vital Signs: Last Vital Signs Temp 97.6 F 09/20/25 09:09 Pulse 78 09/20/25 09:09 Resp 16 09/20/25 09:09 BP 122/80 09/20/25 09:09 Pulse Ox 97 09/20/25 09:09 Oxygen Delivery Method Room Air 09/20/25 09:09 BMI result Body Mass Index 29.5 Tobacco/Smoking Status: Tobacco use Status Tobacco use date assessed 09/20/25 09/20/25 09:11 Patient Tobacco Use Status Never used Tobacco 09/20/25 09:11 e-Cigarette/Vaping Use Never Used 09/20/25 09:11 PHQ-9: PHQ-9 Score PHQ-9: Total score 0 09/20/25 09:11 Depression Screening Interpretation: Negative Thrive Assessment: Date of Thrive Assessment Date Thrive assessed 02/23/25 09/20/25 09:11 Currently or been in a relationship where the following occur: No concerns reported Const General: no acute distress HENMT Head: Yes normal to inspection Ears: TM's normal bilaterally Face and sinus: Yes normal facial exam Mouth: Normal oral and palatal mucosa present Throat: Yes posterior oropharynx normal Eyes General: appearance normal, both eyes and all related structures Neck Neck: Yes no lymphadenopathy and Yes supple Resp Effort & Inspection: normal respiratory effort Auscultation: clear to auscultation bilaterally Cardio Rhythm: regular rhythm Heart sounds: S1 normal heart sound present and S2 normal heart sound present GI Inspection: Yes normal to inspection Palpation (GI): Soft to palpation Percussion: Yes normal to percussion Auscultation: normal bowel sounds Coding Level of Care Code Est Pt Prev Care >65y(56373) Diagnoses Annual physical exam Z00.00 Hx of colonoscopy Z98.890 Depression F32.9 HTN (hypertension) I10 Hyperlipidemia E78.5 Assessment & Plan Assessment & Plan (1) Annual physical exam: Code(s): Z00.00 - Encounter for general adult medical examination without abnormal findings Category: Medical Plan: Well-balanced diet regular physical activity weight loss discussed with the patient. He will return for fasting blood work. (2) Hx of colonoscopy: Comment: 2014, Dr. Brunner, declined colonoscopy 08/2025 Cologuard ordered Code(s): Z98.890 - Other specified postprocedural states Category: Surgical Plan: Cologuard is ordered (3) Depression: Comment: Established with psychiatrist and therapist Code(s): F32.9 - Major depressive disorder, single episode, unspecified Category: Medical Plan: Continue current medication follow-up with psychiatry (4) HTN (hypertension): Code(s): I10 - Essential (primary) hypertension Category: Medical Plan: Continue lisinopril (5) Hyperlipidemia: Code(s): E78.5 - Hyperlipidemia, unspecified Category: Medical Plan: Continue statin Orders: Referrals Cologuard Test Z12.11 - Encounter for screening for malignant neoplasm of colon, Z12.12 - Encounter for screening for malignant neoplasm of rectum Medications: Refilled rosuvastatin 10 mg PO DAILY 90 tabs 3RF
== END 2025-09-20 09:59 | disposition home or self-care (01) ==
LOC: HO.HMCC 09:03
PROVIDERS: PCP Internal Medicine; Visit Provider Internal Medicine
DX: Z00.00 Encounter for general adult medical examination without abnormal findings (principal); F32.9 Major depressive disorder, single episode, unspecified; I10 Essential (primary) hypertension; E78.5 Hyperlipidemia, unspecified; Z98.890 Other specified postprocedural states

== ENCOUNTER → 2025-09-20 09:02 | Outpatient (BNVA) | payer MEDICARE, MEDICAID, SELFPAY | PROVIDERS: PCP Internal Medicine; Visit Provider Internal Medicine | DX: Z00.00 Encounter for general adult medical examination without abnormal findings (principal); F32.9 Major depressive disorder, single episode, unspecified; I10 Essential (primary) hypertension; E78.5 Hyperlipidemia, unspecified | CPT/HCPCS: 99397 ==

== ENCOUNTER 2025-09-21 07:03 | Outpatient (REF) | payer MEDICARE, MEDICAID, SELFPAY ==
--- OUTSIDE RECORDS SUMMARY | 2025-09-21 07:06 | XMS_ITS | Clinical Summary ---
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 Myalgia 02/02/2021 Assessment & Plan [...] LEVEL 02/02/2022 02/02/2021 POTASSIUM LEVEL 02/02/2022 02/02/2021 INFLUENZA VACCINE (#1) 2025 COVID-19 VACCINE (2 - 2024-2 6 season) 2025 02/05/2021 RSV VACCINE (1 - 1-dose 75+ [...] EDT) SODIUM 132(L) 133 - 146 mmol/L [facility] POTASSIUM 4.5 3.3 - 5.1 mmol/L [facility] CHLORIDE 100 96 - 108 mmol/L [facility] CO2 22 21 - 35 mmol/L [facility] BUN 23(H) 6 - 19 mg/dL [facility] CREATININE 1.20 0.5 - 1.5 mg/dL [facility] GLUCOSE 88 70 - 99 mg/dL [facility] ALBUMIN 4.5 3.9 - 4.8 g/dL [facility] TOTAL PROTEIN 8.0 6.5 - 8.0 g/dL [facility] CALCIUM 9.1 8.4 - 10.3 mg/dL [facility] ALKALINE PHOSPHATASE 50 39 - 117 U/L [facility] TOTAL BILIRUBIN 0.5 0.0 - 1.2 mg/dL [facility] AST 26 0 - 37 U/L [facility] ALT 24 0 - 40 U/L [facility] GLOBULIN 3.5 1 - 4.8 g/dL [facility] EGFR 61 >59 mL/min/1.7 3m2 [facility] Comment:Estimated glomerular filtration rate calculated using the CKD-EPI equation. ANION GAP 15 10 - 20 mmol/L [facility] Blood 02/02/2021 3:56 PM EDT 02/02/2021 4:00 PM EDT us Neha Tripathi MD LAB BLOOD ORDERABLES Fin al Result Performing Organization Address City/State/[facility] Co de Phone Number [address] [address] from Last 3 Months or Most Recently Relevant to Health Maintenance Insurance MEDICARE PART A & B [address] [place] [id number] MEDICARE PART A & [facility] A & [place] [id number] MEDICARE PART A [place] [id number] MEDICARE PART A & B [facility] MEDIC[facility] PART [place] PART A & B [facility] MEDICARE PART A [place] Care Teams Guide Rail Cleaner Relationship Specialty Start Date End Date Dilma Garcia MD [address] [place] [address] PCP - General Internal Medicine 06/18/19 Additional Source Comments The information contained in this document represents components of the legal health record. It is not the complete legal health record.[facility]
[2025-09-21 11:27] LABS: MANUAL DIFF FLAG NO
[2025-09-21 11:34] LABS: Hematocrit 40.4 % (42.0-52.0); Hemoglobin 13.4 g/dl (14.0-18.0); Imm Gran Abs Auto 0.01 X10*3/uL (0.00-0.03); Imm Gran Pct Auto 0.2 % (0.0-0.4); Lymphocytes Absolute Auto 1.8 X10*3/uL (1.2-4.9); Mean Corpuscular HGB Conc 33.2 g/dl (31.0-36.0); Mean Corpuscular Hemoglobin 30.7 pg (27.0-33.0); Mean Corpuscular Volume 92.7 fL (80.0-98.0); NRBC Abs Auto 0.000 X10*3/uL (0.0-0.012); NRBC Pct Auto 0.0 /100WBC (0.0-0.2); Platelet Count 142 X10*3/uL (160-400); Red Blood Count 4.36 X10*6/uL (4.60-5.80); White Blood Count 4.2 X10*3/uL (4.8-10.8)
[2025-09-21 11:40] LABS: Appearance Urine Clear; Glucose Urine UA Negative (Negative); PH 5.0 (5.0-9.0); Specific Gravity - Urine 1.010 (1.005-1.025)
[2025-09-21 11:48] LABS: Alanine Aminotransferase 40 U/L (0-40); Albumin Level 4.5 g/dL (3.5-5.0); Alkaline Phosphatase 44 U/L (39-117); Anion Gap 10 (12-20); Aspartate Amino Transferase 37 U/L (5-37); Blood Urea Nitrogen 13 mg/dL (9-16); Calcium 8.9 mg/dL (8.4-10.2); Carbon Dioxide 24 mmol/L (22-29); Chloride 108 mmol/L (96-108); Cholesterol 165 mg/dL (<200); Estimated Glomerular Filt Rate > 60; HDL Cholesterol 39 mg/dL (>40); Potassium 4.2 mmol/L (3.3-5.1); Sodium 138 mmol/L (135-145); Total Protein 7.5 g/dL (6.5-8.0); Triglycerides 230 mg/dL (<150)
== END 2025-09-21 07:04 | disposition home or self-care (01) ==
LOC: HO.HMGCLDS 07:03
PROVIDERS: PCP Internal Medicine; Visit Provider Internal Medicine
DX: I10 Essential (primary) hypertension (principal); E78.5 Hyperlipidemia, unspecified; R73.9 Hyperglycemia, unspecified
CPT/HCPCS: 36415; 80053; 80061; 81001; 82043; 82570; 83036; 85025